=== PATIENT | female | born 1955 | race Two or more races ===

== ENCOUNTER 2019-01-26 10:32 | Inpatient (IN) | payer OTHER ==
[~2019-01-26] VITALS: Ht 152.4 cm; Wt 69.5 kg
[2019-01-26 11:15] LABS: BASOPHILS # (AUTO) 0.07 x10^3/uL (0-0.1); BASOPHILS % (AUTO) 1 % (0-1); EOSINOPHILS # (AUTO) 0.24 x10^3/uL (0-0.4); EOSINOPHILS % (AUTO) 2 % (1-7); LYMPHOCYTES # (AUTO) 3.94 x10^3/uL (1-3.4); LYMPHOCYTES % (AUTO) 40 % (22-44); MD NO; MEAN CORPUSCULAR HGB CONC 33.2 g/dL (32.4-35.8); MEAN CORPUSCULAR VOLUME 93.2 fL (80-100); MEAN PLATELET VOLUME 8.3 fL (7.4-10.4); MONOCYTES # (AUTO) 0.56 x10^3/uL (0.2-0.8); MONOCYTES % (AUTO) 6 % (2-9); NEUTROPHILS % (AUTO) 52 % (42-75); PLATELET COUNT 230 x10^3/uL (130-400); RED BLOOD COUNT 4.97 x10^6/uL (3.82-5.3)
[2019-01-26 11:26] LABS: PROTHROMBIN TIME 10.5 Seconds (9.6-11.5)
[2019-01-26] MEDS ORDERED: PROPOFOL 100 ML IV SCH (11:30)
[2019-01-26] MEDS ORDERED: PLEASE ENTER HEIGHT AND WEIGHT MC SCH (11:30)
[2019-01-26] MEDS ORDERED: SUCCINYLCHOLINE 20 MG/ML, 10ML IVPush ONE (11:30)
[2019-01-26] MEDS ORDERED: hydrALAzine 20 MG/ML, 1ML IV ONE (11:30)
[2019-01-26] MEDS ORDERED: ETOMIDATE 20 MG/10 ML IV ONE (11:30)
[2019-01-26] MEDS ORDERED: PLEASE ENTER ALLERGIES MC SCH (11:30)
[2019-01-26] MEDS ORDERED: OMNIPAQUE 350 MG/ML, 100ML BOTTLE ONE (11:37)
[2019-01-26 12:03] LABS: FIO2 100 %
[2019-01-26] MEDS ORDERED: hydrALAzine 20 MG/ML, 1ML ONE (12:29)
[2019-01-26] MEDS ORDERED: ONDANSETRON 4 MG TABLET PO PRN (12:30)
[2019-01-26 12:48] LABS: ALBUMIN 3.4 g/dL (3.4-5.0); ANION GAP 5 mmol/L (5-15); CALCIUM 8.5 mg/dL (8.5-10.1); CHLORIDE 106 mmol/L (98-107)
[2019-01-26] MEDS ORDERED: FENTANYL PF 250 MCG/5ML ONE (12:49)
[2019-01-26 12:53] LABS: CREATININE 0.97 mg/dL (0.55-1.02)
[2019-01-26 12:54] LABS: ALANINE AMINOTRANSFERASE 10 U/L (12-78); ALKALINE PHOSPHATASE 102 U/L (45-117); BILIRUBIN,TOTAL 0.5 mg/dL (0.2-1.0); TOTAL PROTEIN 7.9 g/dL (6.4-8.2)
[2019-01-26] MEDS ORDERED: BACITRACIN 50,000 UNIT ONE (13:15)
[2019-01-26] MEDS: ALBUTEROL/IPRATROPIUM 2.5MG/0.5MG, 3 ML INLINE SCH ×3 (14:00→23:00)
[2019-01-26] MEDS ORDERED: PHARMACY MAY ADJ FOR RENAL FX MC SCH (14:00)
[2019-01-26] MEDS ORDERED: PROPOFOL 10 MG/ML, 100ML IV ONE (15:46)
[2019-01-26] MEDS ORDERED: PROPOFOL 10 MG/ML, 20ML ONE (15:46)
[2019-01-26] MEDS ORDERED: ROCURONIUM 10MG/ML,5ML ONE (15:46)
[2019-01-26] MEDS ORDERED: SUCCINYLCHOLINE 20 MG/ML, 10ML ONE (15:46)
[2019-01-26] MEDS ORDERED: ETOMIDATE 40 MG/20 ML ONE (15:46)
[2019-01-26] MEDS ORDERED: SODIUM CHLORIDE 0.9% 1,000 ML IV SCH (17:00)
[2019-01-26] MEDS ORDERED: SODIUM CHLORIDE 0.9% 1,000ML IVBOLUS ONE (23:30)
[2019-01-27] MEDS: PROPOFOL 100 ML IV PRN ×3 (02:19→20:41)
[2019-01-27] MEDS: ALBUTEROL/IPRATROPIUM 2.5MG/0.5MG, 3 ML INLINE SCH ×6 (02:20→22:00)
[2019-01-27] MEDS ORDERED: SODIUM CHLORIDE 0.9%, 500ML IVBOLUS ONE (02:30)
[2019-01-27 04:00] VITALS: BP 132/70
[2019-01-27 06:49] LABS: BASOPHILS # (AUTO) 0.04 x10^3/uL (0-0.1); BASOPHILS % (AUTO) 0 % (0-1); EOSINOPHILS % (AUTO) 0 % (1-7); LYMPHOCYTES # (AUTO) 1.69 x10^3/uL (1-3.4); LYMPHOCYTES % (AUTO) 16 % (22-44); MD NO; MEAN CORPUSCULAR HGB CONC 33.1 g/dL (32.4-35.8); MEAN CORPUSCULAR VOLUME 90.8 fL (80-100); MEAN PLATELET VOLUME 8.3 fL (7.4-10.4); MONOCYTES # (AUTO) 0.66 x10^3/uL (0.2-0.8); MONOCYTES % (AUTO) 6 % (2-9); NEUTROPHILS # (AUTO) 8.53 x10^3/uL (1.8-6.8); NEUTROPHILS % (AUTO) 78 % (42-75); PLATELET COUNT 211 x10^3/uL (130-400); RED BLOOD COUNT 4.46 x10^6/uL (3.82-5.3); RED CELL DISTRIBUTION WIDTH 13.9 % (9.6-15.2)
[2019-01-27 07:00] LABS: ANION GAP 7 mmol/L (5-15); CHLORIDE 114 mmol/L (98-107); CREATININE 0.88 mg/dL (0.55-1.02)
[2019-01-27] MEDS: ENALAPRILAT 1.25 MG/ML, 2ML IV PRN (08:29)
[2019-01-27] MEDS ORDERED: LISINOPRIL 10 MG TABLET PO SCH (09:30)
[2019-01-27] MEDS: CEFTRIAXONE PMX 1GM/50ML 50 ML IV SCH (10:51)
[2019-01-27] MEDS: LABETALOL 5 MG/ML SYR. (IV ONLY) IV PRN (10:54)
[2019-01-27] MEDS: SODIUM CHLORIDE 0.9% 1,000 ML IV SCH (14:23)
[2019-01-27] MEDS: SODIUM CHLORIDE 0.45% 500 ML IV SCH ×2 (15:16→17:30)
[2019-01-27] MEDS ORDERED: POTASSIUM CHLORIDE 10% 40 MEQ/30 ML UDC PO SCH (15:30)
[2019-01-27] MEDS: ALBUMIN HUMAN 25% 100 ML IV SCH (18:23)
[2019-01-27] MEDS ORDERED: POTASSIUM CHLORIDE 40 MEQ in SODIUM CHLORIDE 0.9% 500 ML IV ONE (20:00)
[2019-01-27] MEDS: LISINOPRIL 10 MG TABLET NG SCH ×2 (20:17→20:42)
[2019-01-28] MEDS: ALBUMIN HUMAN 25% 100 ML IV SCH (00:28)
[2019-01-28] MEDS: ALBUTEROL/IPRATROPIUM 2.5MG/0.5MG, 3 ML INLINE SCH ×6 (02:00→23:00)
[2019-01-28] MEDS: SODIUM CHLORIDE 0.9% 1,000 ML IV SCH ×3 (02:37→21:47)
[2019-01-28] MEDS: PROPOFOL 100 ML IV PRN ×2 (02:37→06:45)
[2019-01-28 04:48] LABS: BASOPHILS % (AUTO) 0 % (0-1); EOSINOPHILS # (AUTO) 0.03 x10^3/uL (0-0.4); EOSINOPHILS % (AUTO) 0 % (1-7); LYMPHOCYTES # (AUTO) 1.85 x10^3/uL (1-3.4); LYMPHOCYTES % (AUTO) 16 % (22-44); MD NO; MEAN CORPUSCULAR HGB CONC 33.3 g/dL (32.4-35.8); MEAN PLATELET VOLUME 8.7 fL (7.4-10.4); MONOCYTES # (AUTO) 0.66 x10^3/uL (0.2-0.8); MONOCYTES % (AUTO) 6 % (2-9); NEUTROPHILS # (AUTO) 9.19 x10^3/uL (1.8-6.8); NEUTROPHILS % (AUTO) 78 % (42-75); PLATELET COUNT 170 x10^3/uL (130-400); RED BLOOD COUNT 3.99 x10^6/uL (3.82-5.3); RED CELL DISTRIBUTION WIDTH 14.3 % (9.6-15.2)
[2019-01-28 05:02] LABS: ANION GAP 4 mmol/L (5-15); CALCIUM 8.6 mg/dL (8.5-10.1); CHLORIDE 110 mmol/L (98-107); CREATININE 0.73 mg/dL (0.55-1.02)
[2019-01-28] MEDS: PANTOPRAZOLE 40 MG IV IVPush SCH (08:19)
[2019-01-28] MEDS ORDERED: POTASSIUM CHLORIDE 40 MEQ in SODIUM CHLORIDE 0.9% 500 ML IV ONE (09:00)
[2019-01-28] MEDS: LISINOPRIL 10 MG TABLET NG SCH ×2 (09:00→20:50)
[2019-01-28] MEDS: ENALAPRILAT 1.25 MG/ML, 2ML IV PRN (10:03)
[2019-01-28] MEDS: FENTANYL PF 100 MCG/2ML IVPush PRN ×3 (11:34→19:54)
[2019-01-28] MEDS: CEFTRIAXONE PMX 1GM/50ML 50 ML IV SCH (14:51)
[2019-01-29] MEDS: SODIUM CHLORIDE 0.9% 1,000 ML IV SCH ×2 (02:30→11:52)
[2019-01-29] MEDS: ALBUTEROL/IPRATROPIUM 2.5MG/0.5MG, 3 ML INLINE SCH ×6 (02:46→22:35)
[2019-01-29] MEDS: ENALAPRILAT 1.25 MG/ML, 2ML IV PRN (02:51)
[2019-01-29 04:25] LABS: BASOPHILS # (AUTO) 0.03 x10^3/uL (0-0.1); BASOPHILS % (AUTO) 0 % (0-1); EOSINOPHILS # (AUTO) 0.26 x10^3/uL (0-0.4); EOSINOPHILS % (AUTO) 2 % (1-7); LYMPHOCYTES # (AUTO) 2.03 x10^3/uL (1-3.4); LYMPHOCYTES % (AUTO) 17 % (22-44); MD NO; MEAN CORPUSCULAR HEMOGLOBIN 30.5 pg (27.0-34.8); MEAN CORPUSCULAR HGB CONC 32.5 g/dL (32.4-35.8); MEAN CORPUSCULAR VOLUME 93.8 fL (80-100); MEAN PLATELET VOLUME 8.6 fL (7.4-10.4); MONOCYTES # (AUTO) 0.81 x10^3/uL (0.2-0.8); MONOCYTES % (AUTO) 7 % (2-9); NEUTROPHILS # (AUTO) 8.53 x10^3/uL (1.8-6.8); NEUTROPHILS % (AUTO) 73 % (42-75); PLATELET COUNT 188 x10^3/uL (130-400); RED BLOOD COUNT 4.17 x10^6/uL (3.82-5.3); RED CELL DISTRIBUTION WIDTH 14.2 % (9.6-15.2)
[2019-01-29 04:37] LABS: ANION GAP 5 mmol/L (5-15); CALCIUM 8.2 mg/dL (8.5-10.1); CHLORIDE 115 mmol/L (98-107)
[2019-01-29 04:40] LABS: CREATININE 0.59 mg/dL (0.55-1.02)
[2019-01-29] MEDS: PANTOPRAZOLE 40 MG IV IVPush SCH (05:33)
[2019-01-29] MEDS ORDERED: POTASSIUM CHLORIDE 10% 40 MEQ/30 ML UDC PO ONE (07:00)
[2019-01-29] MEDS: GLYCOPYRROLATE 1 MG TABLET PO SCH ×2 (09:48→22:17)
[2019-01-29] MEDS: LISINOPRIL 10 MG TABLET NG SCH ×2 (09:48→22:06)
[2019-01-29] MEDS: CEFTRIAXONE PMX 1GM/50ML 50 ML IV SCH (13:04)
[2019-01-29] MEDS: LEVETIRACETAM 500 MG in SODIUM CHLORIDE 0.9% 100 ML IV SCH (15:37)
[2019-01-29] MEDS: FENTANYL PF 100 MCG/2ML IVPush PRN (22:19)
[2019-01-30] MEDS: SODIUM CHLORIDE 0.9% 1,000 ML IV SCH ×2 (02:20→16:02)
[2019-01-30] MEDS: ALBUTEROL/IPRATROPIUM 2.5MG/0.5MG, 3 ML INLINE SCH ×3 (03:00→10:57)
[2019-01-30] MEDS: LEVETIRACETAM 500 MG in SODIUM CHLORIDE 0.9% 100 ML IV SCH ×2 (04:27→16:02)
[2019-01-30 05:30] LABS: BASOPHILS # (AUTO) 0.02 x10^3/uL (0-0.1); BASOPHILS % (AUTO) 0 % (0-1); EOSINOPHILS % (AUTO) 4 % (1-7); LYMPHOCYTES # (AUTO) 2.03 x10^3/uL (1-3.4); LYMPHOCYTES % (AUTO) 18 % (22-44); MD NO; MEAN CORPUSCULAR HEMOGLOBIN 30.9 pg (27.0-34.8); MEAN CORPUSCULAR HGB CONC 33.2 g/dL (32.4-35.8); MEAN CORPUSCULAR VOLUME 93.1 fL (80-100); MEAN PLATELET VOLUME 8.7 fL (7.4-10.4); MONOCYTES # (AUTO) 0.86 x10^3/uL (0.2-0.8); MONOCYTES % (AUTO) 8 % (2-9); NEUTROPHILS # (AUTO) 8.12 x10^3/uL (1.8-6.8); NEUTROPHILS % (AUTO) 71 % (42-75); PLATELET COUNT 202 x10^3/uL (130-400); RED BLOOD COUNT 4.36 x10^6/uL (3.82-5.3); RED CELL DISTRIBUTION WIDTH 13.9 % (9.6-15.2)
[2019-01-30 05:32] LABS: ANION GAP 5 mmol/L (5-15); CALCIUM 8.8 mg/dL (8.5-10.1); CHLORIDE 112 mmol/L (98-107)
[2019-01-30] MEDS: PANTOPRAZOLE 40 MG IV IVPush SCH (06:23)
[2019-01-30] MEDS: POTASSIUM CHLORIDE 20 MEQ TAB.ER.PRT PO SCH ×2 (08:30→17:33)
[2019-01-30] MEDS: GLYCOPYRROLATE 1 MG TABLET PO SCH ×2 (08:30→20:19)
[2019-01-30] MEDS: LISINOPRIL 10 MG TABLET NG SCH (08:30)
[2019-01-30] MEDS: DOCUSATE 50 MG/5 ML, 10ML UDC PO SCH (08:48)
[2019-01-30] MEDS: LACTULOSE 20 GM/30 ML UDC PO PRN (08:48)
[2019-01-30] MEDS ORDERED: BISACODYL 10 MG SUPP PR PRN (09:00)
[2019-01-30] MEDS: ENALAPRILAT 1.25 MG/ML, 2ML IV PRN ×2 (10:52→17:35)
[2019-01-30] MEDS ORDERED: RACEPINEPHRINE INH 2.25%, 0.5ML ONE ×2 (11:18→11:20)
[2019-01-30] MEDS: RACEPINEPHRINE INH 2.25%, 0.5ML NPPB PRN ×2 (11:23→13:46)
[2019-01-30] MEDS: LABETALOL 5 MG/ML SYR. (IV ONLY) IV PRN ×4 (11:25→18:17)
[2019-01-30] MEDS ORDERED: DEXAMETHASONE 4 MG/ML, 1ML ONE (11:32)
[2019-01-30] MEDS ORDERED: DEXAMETHASONE 4 MG/ML, 1ML IVPush ONE (12:00)
[2019-01-30] MEDS: CEFTRIAXONE PMX 1GM/50ML 50 ML IV SCH (14:24)
[2019-01-30] MEDS ORDERED: ALBUTEROL/IPRATROPIUM 2.5MG/0.5MG, 3 ML ONE (15:12)
[2019-01-30] MEDS: CARVEDILOL 6.25 MG TABLET PO SCH (17:33)
[2019-01-30] MEDS: DEXAMETHASONE 4 MG/ML, 1ML IVPush SCH (17:33)
[2019-01-30] MEDS: SENNOSIDES 8.8 MG/5 ML ORAL SOL NG SCH (20:07)
[2019-01-30] MEDS: LISINOPRIL 20 MG TABLET NG SCH (20:19)
[2019-01-31] MEDS: DEXAMETHASONE 4 MG/ML, 1ML IVPush SCH ×4 (01:06→18:16)
[2019-01-31] MEDS: LEVETIRACETAM 500 MG in SODIUM CHLORIDE 0.9% 100 ML IV SCH ×2 (04:25→15:40)
[2019-01-31 04:51] LABS: BASOPHILS # (AUTO) 0.01 x10^3/uL (0-0.1); BASOPHILS % (AUTO) 0 % (0-1); EOSINOPHILS % (AUTO) 0 % (1-7); LYMPHOCYTES # (AUTO) 0.87 x10^3/uL (1-3.4); LYMPHOCYTES % (AUTO) 12 % (22-44); MD NO; MEAN CORPUSCULAR HEMOGLOBIN 30.7 pg (27.0-34.8); MEAN CORPUSCULAR HGB CONC 32.7 g/dL (32.4-35.8); MEAN CORPUSCULAR VOLUME 94.1 fL (80-100); MEAN PLATELET VOLUME 8.6 fL (7.4-10.4); MONOCYTES # (AUTO) 0.06 x10^3/uL (0.2-0.8); MONOCYTES % (AUTO) 1 % (2-9); NEUTROPHILS # (AUTO) 6.24 x10^3/uL (1.8-6.8); NEUTROPHILS % (AUTO) 87 % (42-75); PLATELET COUNT 261 x10^3/uL (130-400); RED BLOOD COUNT 4.52 x10^6/uL (3.82-5.3); RED CELL DISTRIBUTION WIDTH 14.2 % (9.6-15.2)
[2019-01-31 04:59] LABS: ANION GAP 4 mmol/L (5-15); CALCIUM 9.2 mg/dL (8.5-10.1); CHLORIDE 112 mmol/L (98-107); CREATININE 0.74 mg/dL (0.55-1.02)
[2019-01-31] MEDS: SODIUM CHLORIDE 0.9% 1,000 ML IV SCH ×2 (05:35→18:16)
[2019-01-31] MEDS: CARVEDILOL 6.25 MG TABLET PO SCH ×2 (05:43→18:16)
[2019-01-31] MEDS: PANTOPRAZOLE 40 MG IV IVPush SCH (05:43)
[2019-01-31] MEDS: GLYCOPYRROLATE 1 MG TABLET PO SCH ×2 (08:15→21:28)
[2019-01-31] MEDS: LISINOPRIL 20 MG TABLET NG SCH ×2 (08:15→21:28)
[2019-01-31] MEDS: DOCUSATE 50 MG/5 ML, 10ML UDC PO SCH (08:15)
[2019-01-31] MEDS: ENALAPRILAT 1.25 MG/ML, 2ML IV PRN (10:11)
[2019-01-31] MEDS: hydrALAzine 20 MG/ML, 1ML IV PRN (12:33)
[2019-01-31] MEDS: CEFTRIAXONE PMX 1GM/50ML 50 ML IV SCH (13:47)
[2019-01-31] MEDS: SENNOSIDES 8.8 MG/5 ML ORAL SOL NG SCH (21:28)
[2019-02-01] MEDS: DEXAMETHASONE 4 MG/ML, 1ML IVPush SCH (00:06)
[2019-02-01] MEDS: hydrALAzine 20 MG/ML, 1ML IV PRN ×3 (03:04→23:17)
[2019-02-01] MEDS: LEVETIRACETAM 500 MG in SODIUM CHLORIDE 0.9% 100 ML IV SCH ×2 (04:10→15:45)
[2019-02-01 04:18] LABS: BASOPHILS # (AUTO) 0.01 x10^3/uL (0-0.1); BASOPHILS % (AUTO) 0 % (0-1); EOSINOPHILS # (AUTO) 0.03 x10^3/uL (0-0.4); EOSINOPHILS % (AUTO) 0 % (1-7); LYMPHOCYTES # (AUTO) 0.82 x10^3/uL (1-3.4); LYMPHOCYTES % (AUTO) 8 % (22-44); MD NO; MEAN CORPUSCULAR HGB CONC 32.7 g/dL (32.4-35.8); MEAN CORPUSCULAR VOLUME 94.8 fL (80-100); MEAN PLATELET VOLUME 8.6 fL (7.4-10.4); MONOCYTES # (AUTO) 0.23 x10^3/uL (0.2-0.8); MONOCYTES % (AUTO) 2 % (2-9); NEUTROPHILS # (AUTO) 9.33 x10^3/uL (1.8-6.8); NEUTROPHILS % (AUTO) 90 % (42-75); PLATELET COUNT 276 x10^3/uL (130-400); RED CELL DISTRIBUTION WIDTH 14.1 % (9.6-15.2)
[2019-02-01 04:30] LABS: ANION GAP 1 mmol/L (5-15); CHLORIDE 110 mmol/L (98-107); CREATININE 0.79 mg/dL (0.55-1.02)
[2019-02-01] MEDS: CARVEDILOL 6.25 MG TABLET PO SCH ×2 (05:57→17:21)
[2019-02-01] MEDS: PANTOPRAZOLE 40 MG IV IVPush SCH (05:57)
[2019-02-01] MEDS: GLYCOPYRROLATE 1 MG TABLET PO SCH ×2 (08:24→20:41)
[2019-02-01] MEDS: SODIUM CHLORIDE 0.9% 1,000 ML IV SCH (08:24)
[2019-02-01] MEDS: LISINOPRIL 20 MG TABLET NG SCH ×2 (08:24→20:41)
[2019-02-01] MEDS: DOCUSATE 50 MG/5 ML, 10ML UDC PO SCH (08:24)
[2019-02-01] MEDS: CEFTRIAXONE PMX 1GM/50ML 50 ML IV SCH (14:16)
[2019-02-02] MEDS: hydrALAzine 20 MG/ML, 1ML IV PRN (01:52)
[2019-02-02] MEDS: LEVETIRACETAM 500 MG in SODIUM CHLORIDE 0.9% 100 ML IV SCH ×2 (04:20→16:07)
[2019-02-02 04:35] LABS: BASOPHILS # (AUTO) 0.04 x10^3/uL (0-0.1); BASOPHILS % (AUTO) 0 % (0-1); EOSINOPHILS # (AUTO) 0.01 x10^3/uL (0-0.4); EOSINOPHILS % (AUTO) 0 % (1-7); LYMPHOCYTES # (AUTO) 3.05 x10^3/uL (1-3.4); LYMPHOCYTES % (AUTO) 24 % (22-44); MD NO; MEAN CORPUSCULAR HGB CONC 32.4 g/dL (32.4-35.8); MEAN CORPUSCULAR VOLUME 92.4 fL (80-100); MEAN PLATELET VOLUME 8.5 fL (7.4-10.4); MONOCYTES # (AUTO) 1.11 x10^3/uL (0.2-0.8); MONOCYTES % (AUTO) 9 % (2-9); NEUTROPHILS # (AUTO) 8.58 x10^3/uL (1.8-6.8); NEUTROPHILS % (AUTO) 67 % (42-75); PLATELET COUNT 319 x10^3/uL (130-400); RED BLOOD COUNT 4.97 x10^6/uL (3.82-5.3); RED CELL DISTRIBUTION WIDTH 14.1 % (9.6-15.2)
[2019-02-02 04:44] LABS: ANION GAP 3 mmol/L (5-15); CALCIUM 9.1 mg/dL (8.5-10.1); CHLORIDE 110 mmol/L (98-107); CREATININE 0.86 mg/dL (0.55-1.02)
[2019-02-02] MEDS: PANTOPRAZOLE 40 MG IV IVPush SCH (06:06)
[2019-02-02] MEDS: CARVEDILOL 6.25 MG TABLET PO SCH ×2 (06:07→17:45)
[2019-02-02] MEDS: DOCUSATE 50 MG/5 ML, 10ML UDC PO SCH (08:39)
[2019-02-02] MEDS: LISINOPRIL 20 MG TABLET NG SCH ×2 (08:39→21:15)
[2019-02-02] MEDS: GLYCOPYRROLATE 1 MG TABLET PO SCH ×2 (08:39→21:15)
[2019-02-02] MEDS: DOXAZOSIN 2MG TABLET PO SCH (08:40)
[2019-02-02] MEDS: CEFTRIAXONE PMX 1GM/50ML 50 ML IV SCH (14:08)
[2019-02-03] MEDS: hydrALAzine 20 MG/ML, 1ML IV PRN (01:05)
[2019-02-03] MEDS: LEVETIRACETAM 500 MG in SODIUM CHLORIDE 0.9% 100 ML IV SCH ×2 (04:14→16:29)
[2019-02-03 04:34] LABS: BASOPHILS % (AUTO) 0 % (0-1); EOSINOPHILS # (AUTO) 0.24 x10^3/uL (0-0.4); EOSINOPHILS % (AUTO) 2 % (1-7); LYMPHOCYTES # (AUTO) 2.07 x10^3/uL (1-3.4); LYMPHOCYTES % (AUTO) 20 % (22-44); MD NO; MEAN CORPUSCULAR HEMOGLOBIN 30.3 pg (27.0-34.8); MEAN CORPUSCULAR HGB CONC 32.2 g/dL (32.4-35.8); MEAN CORPUSCULAR VOLUME 94.1 fL (80-100); MEAN PLATELET VOLUME 8.3 fL (7.4-10.4); MONOCYTES # (AUTO) 0.26 x10^3/uL (0.2-0.8); MONOCYTES % (AUTO) 3 % (2-9); NEUTROPHILS % (AUTO) 75 % (42-75); PLATELET COUNT 303 x10^3/uL (130-400); RED BLOOD COUNT 4.64 x10^6/uL (3.82-5.3)
[2019-02-03 04:55] LABS: ANION GAP 2 mmol/L (5-15); CHLORIDE 109 mmol/L (98-107)
[2019-02-03 04:57] LABS: CREATININE 0.79 mg/dL (0.55-1.02)
[2019-02-03] MEDS: CARVEDILOL 6.25 MG TABLET PO SCH ×2 (05:49→17:56)
[2019-02-03] MEDS: PANTOPRAZOLE 40 MG IV IVPush SCH (05:49)
[2019-02-03] MEDS: LISINOPRIL 20 MG TABLET NG SCH ×2 (08:57→20:35)
[2019-02-03] MEDS: DOXAZOSIN 2MG TABLET PO SCH (08:57)
[2019-02-03] MEDS: DOCUSATE 50 MG/5 ML, 10ML UDC PO SCH (08:57)
[2019-02-03] MEDS: GLYCOPYRROLATE 1 MG TABLET PO SCH ×2 (08:57→20:35)
[2019-02-03] MEDS: CEFTRIAXONE PMX 1GM/50ML 50 ML IV SCH (14:26)
[2019-02-04] MEDS: LEVETIRACETAM 500 MG in SODIUM CHLORIDE 0.9% 100 ML IV SCH ×2 (04:20→16:04)
[2019-02-04 04:21] LABS: BASOPHILS # (AUTO) 0.05 x10^3/uL (0-0.1); BASOPHILS % (AUTO) 1 % (0-1); EOSINOPHILS % (AUTO) 5 % (1-7); LYMPHOCYTES # (AUTO) 2.16 x10^3/uL (1-3.4); LYMPHOCYTES % (AUTO) 18 % (22-44); MD NO; MEAN CORPUSCULAR HEMOGLOBIN 30.6 pg (27.0-34.8); MEAN CORPUSCULAR HGB CONC 32.2 g/dL (32.4-35.8); MEAN CORPUSCULAR VOLUME 94.8 fL (80-100); MEAN PLATELET VOLUME 8.3 fL (7.4-10.4); MONOCYTES # (AUTO) 0.48 x10^3/uL (0.2-0.8); MONOCYTES % (AUTO) 4 % (2-9); NEUTROPHILS # (AUTO) 8.62 x10^3/uL (1.8-6.8); NEUTROPHILS % (AUTO) 72 % (42-75); PLATELET COUNT 279 x10^3/uL (130-400); RED BLOOD COUNT 4.53 x10^6/uL (3.82-5.3); RED CELL DISTRIBUTION WIDTH 13.9 % (9.6-15.2)
[2019-02-04 04:29] LABS: ANION GAP 1 mmol/L (5-15); CALCIUM 8.8 mg/dL (8.5-10.1); CHLORIDE 107 mmol/L (98-107); CREATININE 0.69 mg/dL (0.55-1.02)
[2019-02-04] MEDS: CARVEDILOL 6.25 MG TABLET PO SCH ×2 (06:08→18:41)
[2019-02-04] MEDS: PANTOPRAZOLE 40 MG IV IVPush SCH (06:08)
[2019-02-04] MEDS: GLYCOPYRROLATE 1 MG TABLET PO SCH ×2 (09:49→20:53)
[2019-02-04] MEDS: DOXAZOSIN 2MG TABLET PO SCH (09:51)
[2019-02-04] MEDS: LISINOPRIL 20 MG TABLET NG SCH ×2 (09:51→20:53)
[2019-02-04] MEDS: DOCUSATE 50 MG/5 ML, 10ML UDC PO SCH (09:52)
[2019-02-04] MEDS: CHOLESTYRAMINE LIGHT 4GM PACKET PO SCH ×2 (09:52→20:53)
[2019-02-05] MEDS: LEVETIRACETAM 500 MG in SODIUM CHLORIDE 0.9% 100 ML IV SCH ×2 (04:14→16:37)
[2019-02-05 04:27] LABS: BASOPHILS # (AUTO) 0.04 x10^3/uL (0-0.1); BASOPHILS % (AUTO) 0 % (0-1); EOSINOPHILS # (AUTO) 0.74 x10^3/uL (0-0.4); EOSINOPHILS % (AUTO) 6 % (1-7); LYMPHOCYTES # (AUTO) 2.07 x10^3/uL (1-3.4); LYMPHOCYTES % (AUTO) 16 % (22-44); MD NO; MEAN CORPUSCULAR HEMOGLOBIN 30.1 pg (27.0-34.8); MEAN CORPUSCULAR HGB CONC 32.4 g/dL (32.4-35.8); MEAN CORPUSCULAR VOLUME 92.8 fL (80-100); MEAN PLATELET VOLUME 8.3 fL (7.4-10.4); MONOCYTES # (AUTO) 0.81 x10^3/uL (0.2-0.8); MONOCYTES % (AUTO) 6 % (2-9); NEUTROPHILS # (AUTO) 9.58 x10^3/uL (1.8-6.8); NEUTROPHILS % (AUTO) 72 % (42-75); PLATELET COUNT 271 x10^3/uL (130-400); RED BLOOD COUNT 4.38 x10^6/uL (3.82-5.3); RED CELL DISTRIBUTION WIDTH 13.5 % (9.6-15.2)
[2019-02-05 04:35] LABS: ANION GAP 2 mmol/L (5-15); CALCIUM 8.8 mg/dL (8.5-10.1); CHLORIDE 104 mmol/L (98-107)
[2019-02-05 04:36] LABS: CREATININE 0.58 mg/dL (0.55-1.02)
[2019-02-05] MEDS: PANTOPRAZOLE 40 MG IV IVPush SCH (06:32)
[2019-02-05] MEDS: CARVEDILOL 6.25 MG TABLET PO SCH ×2 (06:33→17:22)
[2019-02-05] MEDS: DOXAZOSIN 2MG TABLET PO SCH (08:11)
[2019-02-05] MEDS: LISINOPRIL 20 MG TABLET NG SCH ×2 (08:11→20:29)
[2019-02-05] MEDS: CHOLESTYRAMINE LIGHT 4GM PACKET PO SCH ×2 (08:11→20:29)
[2019-02-05] MEDS ORDERED: MIDAZOLAM 1 MG/ML, 2ML ONE (11:49)
[2019-02-05] MEDS ORDERED: MIDAZOLAM 1 MG/ML, 2ML IVPush ONE (12:00)
[2019-02-05] MEDS: NYSTATIN 500,000 UNITS/5 ML UDC PO SCH ×3 (12:59→20:29)
[2019-02-06] MEDS: LEVETIRACETAM 500 MG in SODIUM CHLORIDE 0.9% 100 ML IV SCH (03:55)
[2019-02-06 04:26] LABS: BASOPHILS # (AUTO) 0.02 x10^3/uL (0-0.1); BASOPHILS % (AUTO) 0 % (0-1); EOSINOPHILS # (AUTO) 0.61 x10^3/uL (0-0.4); EOSINOPHILS % (AUTO) 4 % (1-7); LYMPHOCYTES % (AUTO) 17 % (22-44); MD NO; MEAN CORPUSCULAR HEMOGLOBIN 30.6 pg (27.0-34.8); MEAN CORPUSCULAR HGB CONC 32.4 g/dL (32.4-35.8); MEAN CORPUSCULAR VOLUME 94.3 fL (80-100); MEAN PLATELET VOLUME 8.4 fL (7.4-10.4); MONOCYTES # (AUTO) 1.13 x10^3/uL (0.2-0.8); MONOCYTES % (AUTO) 8 % (2-9); NEUTROPHILS # (AUTO) 9.72 x10^3/uL (1.8-6.8); NEUTROPHILS % (AUTO) 71 % (42-75); PLATELET COUNT 272 x10^3/uL (130-400); RED BLOOD COUNT 4.17 x10^6/uL (3.82-5.3); RED CELL DISTRIBUTION WIDTH 13.6 % (9.6-15.2)
[2019-02-06 04:36] LABS: ANION GAP 4 mmol/L (5-15); CALCIUM 8.7 mg/dL (8.5-10.1); CHLORIDE 100 mmol/L (98-107); CREATININE 0.62 mg/dL (0.55-1.02)
[2019-02-06] MEDS: CARVEDILOL 6.25 MG TABLET PO SCH ×2 (06:25→16:22)
[2019-02-06] MEDS: PANTOPRAZOLE 40 MG IV IVPush SCH (06:25)
[2019-02-06] MEDS: NYSTATIN 500,000 UNITS/5 ML UDC PO SCH ×4 (06:25→20:18)
[2019-02-06] MEDS: SODIUM CHLORIDE 1 GM TABLET NG SCH ×3 (08:32→20:18)
[2019-02-06] MEDS: CHOLESTYRAMINE LIGHT 4GM PACKET PO SCH ×2 (08:32→21:06)
[2019-02-06] MEDS: DOXAZOSIN 2MG TABLET PO SCH (08:32)
[2019-02-06] MEDS: LISINOPRIL 20 MG TABLET NG SCH ×2 (08:32→20:18)
[2019-02-07] MEDS: hydrALAzine 20 MG/ML, 1ML IV PRN (03:37)
[2019-02-07 04:36] LABS: BASOPHILS # (AUTO) 0.02 x10^3/uL (0-0.1); BASOPHILS % (AUTO) 0 % (0-1); EOSINOPHILS # (AUTO) 0.59 x10^3/uL (0-0.4); EOSINOPHILS % (AUTO) 5 % (1-7); LYMPHOCYTES # (AUTO) 2.17 x10^3/uL (1-3.4); LYMPHOCYTES % (AUTO) 17 % (22-44); MD NO; MEAN CORPUSCULAR HEMOGLOBIN 30.8 pg (27.0-34.8); MEAN CORPUSCULAR VOLUME 93.6 fL (80-100); MEAN PLATELET VOLUME 8.6 fL (7.4-10.4); MONOCYTES % (AUTO) 9 % (2-9); NEUTROPHILS # (AUTO) 8.93 x10^3/uL (1.8-6.8); NEUTROPHILS % (AUTO) 69 % (42-75); PLATELET COUNT 289 x10^3/uL (130-400); RED BLOOD COUNT 4.22 x10^6/uL (3.82-5.3); RED CELL DISTRIBUTION WIDTH 13.6 % (9.6-15.2)
[2019-02-07 04:46] LABS: ANION GAP 4 mmol/L (5-15); CALCIUM 8.9 mg/dL (8.5-10.1); CHLORIDE 102 mmol/L (98-107); CREATININE 0.59 mg/dL (0.55-1.02)
[2019-02-07] MEDS: CARVEDILOL 6.25 MG TABLET PO SCH ×2 (05:49→16:52)
[2019-02-07] MEDS: NYSTATIN 500,000 UNITS/5 ML UDC PO SCH ×4 (05:49→19:58)
[2019-02-07] MEDS: PANTOPRAZOLE 40 MG IV IVPush SCH (05:50)
[2019-02-07] MEDS: LISINOPRIL 20 MG TABLET NG SCH ×2 (09:26→19:58)
[2019-02-07] MEDS: DOXAZOSIN 2MG TABLET PO SCH (09:26)
[2019-02-07] MEDS: SODIUM CHLORIDE 1 GM TABLET NG SCH ×3 (09:26→19:57)
[2019-02-07] MEDS: ACETAMINOPHEN 650 MG/20.3 ML UDC PO/NG PRN (19:57)
[2019-02-08 04:27] LABS: BASOPHILS # (AUTO) 0.05 x10^3/uL (0-0.1); BASOPHILS % (AUTO) 1 % (0-1); EOSINOPHILS # (AUTO) 0.51 x10^3/uL (0-0.4); EOSINOPHILS % (AUTO) 5 % (1-7); LYMPHOCYTES # (AUTO) 2.06 x10^3/uL (1-3.4); LYMPHOCYTES % (AUTO) 19 % (22-44); MD NO; MEAN CORPUSCULAR HEMOGLOBIN 30.7 pg (27.0-34.8); MEAN CORPUSCULAR HGB CONC 32.7 g/dL (32.4-35.8); MEAN CORPUSCULAR VOLUME 93.9 fL (80-100); MEAN PLATELET VOLUME 8.7 fL (7.4-10.4); MONOCYTES # (AUTO) 1.06 x10^3/uL (0.2-0.8); MONOCYTES % (AUTO) 10 % (2-9); NEUTROPHILS # (AUTO) 7.36 x10^3/uL (1.8-6.8); NEUTROPHILS % (AUTO) 67 % (42-75); PLATELET COUNT 315 x10^3/uL (130-400); RED BLOOD COUNT 4.26 x10^6/uL (3.82-5.3); RED CELL DISTRIBUTION WIDTH 13.9 % (9.6-15.2)
[2019-02-08 04:36] LABS: ANION GAP 1 mmol/L (5-15); CALCIUM 9.4 mg/dL (8.5-10.1); CHLORIDE 106 mmol/L (98-107); CREATININE 0.63 mg/dL (0.55-1.02)
[2019-02-08] MEDS: CARVEDILOL 6.25 MG TABLET PO SCH ×2 (06:07→17:35)
[2019-02-08] MEDS: NYSTATIN 500,000 UNITS/5 ML UDC PO SCH ×4 (06:07→19:50)
[2019-02-08] MEDS: PANTOPRAZOLE 40 MG IV IVPush SCH (06:07)
[2019-02-08] MEDS: SODIUM CHLORIDE 1 GM TABLET NG SCH ×3 (11:21→19:50)
[2019-02-08] MEDS: LISINOPRIL 20 MG TABLET NG SCH ×2 (11:22→19:50)
[2019-02-08] MEDS: DOXAZOSIN 2MG TABLET PO SCH (11:22)
[2019-02-08] MEDS: hydrALAzine 20 MG/ML, 1ML IV PRN (17:35)
[2019-02-08] MEDS: ACETAMINOPHEN 650 MG/20.3 ML UDC PO/NG PRN (19:50)
[2019-02-09 04:36] LABS: BASOPHILS # (AUTO) 0.05 x10^3/uL (0-0.1); BASOPHILS % (AUTO) 0 % (0-1); EOSINOPHILS # (AUTO) 0.18 x10^3/uL (0-0.4); EOSINOPHILS % (AUTO) 1 % (1-7); LYMPHOCYTES # (AUTO) 2.13 x10^3/uL (1-3.4); LYMPHOCYTES % (AUTO) 16 % (22-44); MD NO; MEAN CORPUSCULAR HEMOGLOBIN 30.9 pg (27.0-34.8); MEAN CORPUSCULAR HGB CONC 32.9 g/dL (32.4-35.8); MEAN CORPUSCULAR VOLUME 93.8 fL (80-100); MEAN PLATELET VOLUME 8.9 fL (7.4-10.4); MONOCYTES # (AUTO) 1.22 x10^3/uL (0.2-0.8); MONOCYTES % (AUTO) 9 % (2-9); NEUTROPHILS # (AUTO) 9.44 x10^3/uL (1.8-6.8); NEUTROPHILS % (AUTO) 73 % (42-75); PLATELET COUNT 304 x10^3/uL (130-400); RED BLOOD COUNT 4.21 x10^6/uL (3.82-5.3); RED CELL DISTRIBUTION WIDTH 14.1 % (9.6-15.2)
[2019-02-09 04:49] LABS: ANION GAP 3 mmol/L (5-15); CALCIUM 9.3 mg/dL (8.5-10.1); CHLORIDE 106 mmol/L (98-107)
[2019-02-09] MEDS: PANTOPRAZOLE 40 MG IV IVPush SCH (05:50)
[2019-02-09] MEDS: CARVEDILOL 6.25 MG TABLET PO SCH ×4 (05:50→20:19)
[2019-02-09] MEDS: NYSTATIN 500,000 UNITS/5 ML UDC PO SCH ×4 (05:50→20:19)
[2019-02-09] MEDS: LISINOPRIL 20 MG TABLET NG SCH ×2 (09:28→20:18)
[2019-02-09] MEDS: FAMOTIDINE 20 MG TABLET PO SCH ×2 (09:28→20:19)
[2019-02-09] MEDS: SODIUM CHLORIDE 1 GM TABLET NG SCH ×3 (09:28→20:18)
[2019-02-09] MEDS: DOXAZOSIN 2MG TABLET PO SCH (09:28)
[2019-02-09] MEDS: ENOXAPARIN 40 MG/0.4 ML SQ SCH (09:28)
[2019-02-09 19:20] VITALS: BP 135/80
[2019-02-10 02:00] VITALS: BP 126/75
[2019-02-10 04:31] LABS: BASOPHILS # (AUTO) 0.08 x10^3/uL (0-0.1); BASOPHILS % (AUTO) 1 % (0-1); EOSINOPHILS # (AUTO) 0.41 x10^3/uL (0-0.4); EOSINOPHILS % (AUTO) 4 % (1-7); LYMPHOCYTES # (AUTO) 1.98 x10^3/uL (1-3.4); LYMPHOCYTES % (AUTO) 17 % (22-44); MD NO; MEAN CORPUSCULAR HEMOGLOBIN 30.8 pg (27.0-34.8); MEAN CORPUSCULAR HGB CONC 33.8 g/dL (32.4-35.8); MEAN CORPUSCULAR VOLUME 91.3 fL (80-100); MEAN PLATELET VOLUME 8.6 fL (7.4-10.4); MONOCYTES # (AUTO) 1.06 x10^3/uL (0.2-0.8); MONOCYTES % (AUTO) 9 % (2-9); NEUTROPHILS # (AUTO) 7.97 x10^3/uL (1.8-6.8); NEUTROPHILS % (AUTO) 69 % (42-75); PLATELET COUNT 319 x10^3/uL (130-400); RED BLOOD COUNT 3.93 x10^6/uL (3.82-5.3); RED CELL DISTRIBUTION WIDTH 13.9 % (9.6-15.2)
[2019-02-10 04:35] LABS: ANION GAP 4 mmol/L (5-15); CALCIUM 9.3 mg/dL (8.5-10.1); CHLORIDE 108 mmol/L (98-107); CREATININE 0.63 mg/dL (0.55-1.02)
[2019-02-10] MEDS: NYSTATIN 500,000 UNITS/5 ML UDC PO SCH ×4 (06:37→20:59)
[2019-02-10] MEDS: hydrALAzine 20 MG/ML, 1ML IV PRN (08:28)
[2019-02-10] MEDS: DOXAZOSIN 2MG TABLET PO SCH (08:32)
[2019-02-10] MEDS: FAMOTIDINE 20 MG TABLET PO SCH ×2 (08:32→20:59)
[2019-02-10] MEDS: ENOXAPARIN 40 MG/0.4 ML SQ SCH (08:32)
[2019-02-10 08:33] VITALS: BP 183/88
[2019-02-10] MEDS: SODIUM CHLORIDE 1 GM TABLET NG SCH ×4 (08:33→21:02)
[2019-02-10] MEDS: CARVEDILOL 6.25 MG TABLET PO SCH ×3 (08:33→20:59)
[2019-02-10] MEDS: LISINOPRIL 20 MG TABLET NG SCH ×2 (08:33→20:59)
[2019-02-10] MEDS: AMLODIPINE 5 MG TABLET PO SCH (09:49)
[2019-02-10 14:00] VITALS: BP 147/86
[2019-02-10 16:36] VITALS: BP 163/76
[2019-02-10 17:42] VITALS: BP 155/82
[2019-02-10 19:29] VITALS: BP 143/70
[2019-02-11 00:32] VITALS: BP 164/79
[2019-02-11 05:00] LABS: BASOPHILS # (AUTO) 0.08 x10^3/uL (0-0.1); BASOPHILS % (AUTO) 1 % (0-1); EOSINOPHILS # (AUTO) 0.27 x10^3/uL (0-0.4); EOSINOPHILS % (AUTO) 2 % (1-7); LYMPHOCYTES # (AUTO) 1.86 x10^3/uL (1-3.4); LYMPHOCYTES % (AUTO) 14 % (22-44); MD NO; MEAN CORPUSCULAR HEMOGLOBIN 30.4 pg (27.0-34.8); MEAN CORPUSCULAR HGB CONC 32.9 g/dL (32.4-35.8); MEAN CORPUSCULAR VOLUME 92.3 fL (80-100); MEAN PLATELET VOLUME 8.6 fL (7.4-10.4); MONOCYTES # (AUTO) 1.03 x10^3/uL (0.2-0.8); MONOCYTES % (AUTO) 8 % (2-9); NEUTROPHILS # (AUTO) 9.94 x10^3/uL (1.8-6.8); NEUTROPHILS % (AUTO) 75 % (42-75); PLATELET COUNT 332 x10^3/uL (130-400); RED BLOOD COUNT 3.95 x10^6/uL (3.82-5.3); RED CELL DISTRIBUTION WIDTH 14.1 % (9.6-15.2)
[2019-02-11 05:10] LABS: CHLORIDE 106 mmol/L (98-107)
[2019-02-11 05:14] LABS: ANION GAP 3 mmol/L (5-15); CALCIUM 9.7 mg/dL (8.5-10.1); CREATININE 0.76 mg/dL (0.55-1.02)
[2019-02-11] MEDS: NYSTATIN 500,000 UNITS/5 ML UDC PO SCH ×4 (06:04→21:58)
[2019-02-11 06:46] VITALS: BP 153/75
[2019-02-11] MEDS: LISINOPRIL 20 MG TABLET NG SCH ×2 (09:00→21:58)
[2019-02-11] MEDS: FAMOTIDINE 20 MG TABLET PO SCH ×2 (09:00→21:58)
[2019-02-11] MEDS: SODIUM CHLORIDE 1 GM TABLET NG SCH ×3 (10:57→21:58)
[2019-02-11] MEDS: ENOXAPARIN 40 MG/0.4 ML SQ SCH (10:58)
[2019-02-11] MEDS: AMLODIPINE 5 MG TABLET PO SCH (11:00)
[2019-02-11] MEDS: CARVEDILOL 6.25 MG TABLET PO SCH ×3 (11:01→21:58)
[2019-02-11] MEDS: DOXAZOSIN 2MG TABLET PO SCH (11:02)
[2019-02-11 12:27] VITALS: BP 136/88
[2019-02-11 17:30] VITALS: BP 154/83
[2019-02-11 19:47] VITALS: BP 156/88
[2019-02-12 00:30] VITALS: BP 152/81
[2019-02-12 05:22] LABS: ANION GAP 2 mmol/L (5-15); CALCIUM 9.4 mg/dL (8.5-10.1); CHLORIDE 107 mmol/L (98-107)
[2019-02-12] MEDS: NYSTATIN 500,000 UNITS/5 ML UDC PO SCH ×4 (05:30→20:29)
[2019-02-12 09:18] VITALS: BP 169/85
[2019-02-12] MEDS: DOXAZOSIN 2MG TABLET PO SCH (11:02)
[2019-02-12] MEDS: AMLODIPINE 5 MG TABLET PO SCH (11:02)
[2019-02-12] MEDS: FAMOTIDINE 20 MG TABLET PO SCH ×2 (11:03→20:28)
[2019-02-12] MEDS: LISINOPRIL 20 MG TABLET NG SCH ×2 (11:03→20:29)
[2019-02-12] MEDS: ENOXAPARIN 40 MG/0.4 ML SQ SCH (11:21)
[2019-02-12] MEDS: CARVEDILOL 6.25 MG TABLET PO SCH ×3 (11:21→20:29)
[2019-02-12] MEDS: SODIUM CHLORIDE 1 GM TABLET NG SCH ×3 (11:27→20:28)
[2019-02-12 13:38] VITALS: BP 153/80
[2019-02-12 20:18] VITALS: BP 154/80
[2019-02-13 00:29] VITALS: BP 159/85
[2019-02-13] MEDS: NYSTATIN 500,000 UNITS/5 ML UDC PO SCH ×4 (06:00→20:49)
[2019-02-13 07:55] VITALS: BP 153/86
[2019-02-13] MEDS: LISINOPRIL 20 MG TABLET NG SCH ×2 (09:46→20:50)
[2019-02-13] MEDS: AMLODIPINE 5 MG TABLET PO SCH (09:46)
[2019-02-13] MEDS: SODIUM CHLORIDE 1 GM TABLET NG SCH ×3 (09:46→20:50)
[2019-02-13] MEDS: ENOXAPARIN 40 MG/0.4 ML SQ SCH (09:47)
[2019-02-13] MEDS: CARVEDILOL 6.25 MG TABLET PO SCH ×3 (09:47→20:53)
[2019-02-13] MEDS: DOXAZOSIN 2MG TABLET PO SCH (09:47)
[2019-02-13] MEDS: FAMOTIDINE 20 MG TABLET PO SCH ×2 (09:48→20:49)
[2019-02-13 14:30] VITALS: BP 137/85
[2019-02-13 16:35] VITALS: BP 149/78
[2019-02-13 20:18] VITALS: BP 151/84
[2019-02-14 01:18] VITALS: BP 155/79
[2019-02-14] MEDS: NYSTATIN 500,000 UNITS/5 ML UDC PO SCH ×4 (05:13→21:08)
[2019-02-14 06:03] LABS: BASOPHILS # (AUTO) 0.08 x10^3/uL (0-0.1); BASOPHILS % (AUTO) 1 % (0-1); EOSINOPHILS # (AUTO) 0.62 x10^3/uL (0-0.4); EOSINOPHILS % (AUTO) 6 % (1-7); LYMPHOCYTES # (AUTO) 2.02 x10^3/uL (1-3.4); LYMPHOCYTES % (AUTO) 19 % (22-44); MD NO; MEAN CORPUSCULAR HEMOGLOBIN 30.5 pg (27.0-34.8); MEAN CORPUSCULAR HGB CONC 32.5 g/dL (32.4-35.8); MEAN CORPUSCULAR VOLUME 93.8 fL (80-100); MEAN PLATELET VOLUME 8.8 fL (7.4-10.4); MONOCYTES % (AUTO) 7 % (2-9); NEUTROPHILS # (AUTO) 7.05 x10^3/uL (1.8-6.8); NEUTROPHILS % (AUTO) 67 % (42-75); PLATELET COUNT 352 x10^3/uL (130-400); RED BLOOD COUNT 4.23 x10^6/uL (3.82-5.3); RED CELL DISTRIBUTION WIDTH 13.3 % (9.6-15.2)
[2019-02-14 06:04] LABS: ANION GAP 4 mmol/L (5-15); CALCIUM 9.8 mg/dL (8.5-10.1); CHLORIDE 103 mmol/L (98-107); CREATININE 0.61 mg/dL (0.55-1.02)
[2019-02-14 07:10] VITALS: BP 142/86
[2019-02-14] MEDS: ENOXAPARIN 40 MG/0.4 ML SQ SCH (08:20)
[2019-02-14] MEDS: AMLODIPINE 5 MG TABLET PO SCH (09:42)
[2019-02-14] MEDS: DOXAZOSIN 2MG TABLET PO SCH (09:43)
[2019-02-14] MEDS: FAMOTIDINE 20 MG TABLET PO SCH ×2 (09:43→21:00)
[2019-02-14] MEDS: CARVEDILOL 6.25 MG TABLET PO SCH ×3 (09:43→21:00)
[2019-02-14] MEDS: SODIUM CHLORIDE 1 GM TABLET NG SCH ×3 (09:43→21:00)
[2019-02-14] MEDS: LISINOPRIL 20 MG TABLET NG SCH ×2 (09:43→21:00)
[2019-02-14 14:11] VITALS: BP 149/74
[2019-02-14 20:01] VITALS: BP 166/89
[2019-02-15 02:32] VITALS: BP 173/83
[2019-02-15 04:55] VITALS: BP 169/101
[2019-02-15] MEDS: ENALAPRILAT 1.25 MG/ML, 2ML IV PRN (05:00)
[2019-02-15 05:54] LABS: ANION GAP 4 mmol/L (5-15); CHLORIDE 103 mmol/L (98-107)
[2019-02-15 05:57] LABS: CREATININE 0.63 mg/dL (0.55-1.02)
[2019-02-15] MEDS: NYSTATIN 500,000 UNITS/5 ML UDC PO SCH ×4 (06:18→21:26)
[2019-02-15 07:14] VITALS: BP 152/79
[2019-02-15 11:56] VITALS: BP 159/82
[2019-02-15] MEDS: ENOXAPARIN 40 MG/0.4 ML SQ SCH (12:02)
[2019-02-15] MEDS: FAMOTIDINE 20 MG TABLET PO SCH ×2 (12:02→21:25)
[2019-02-15] MEDS: SODIUM CHLORIDE 1 GM TABLET NG SCH ×3 (12:02→21:26)
[2019-02-15] MEDS: CARVEDILOL 6.25 MG TABLET PO SCH ×3 (12:02→21:25)
[2019-02-15] MEDS: LISINOPRIL 20 MG TABLET NG SCH ×2 (12:03→21:26)
[2019-02-15] MEDS: AMLODIPINE 5 MG TABLET PO SCH (12:03)
[2019-02-15] MEDS: DOXAZOSIN 2MG TABLET PO SCH (12:03)
[2019-02-15 14:30] VITALS: BP 154/77
[2019-02-15 19:31] VITALS: BP 151/78
[2019-02-16] VITALS: BP 161/82
[2019-02-16 04:05] VITALS: BP 158/84
[2019-02-16] MEDS: NYSTATIN 500,000 UNITS/5 ML UDC PO SCH ×4 (06:54→21:00)
[2019-02-16 08:18] VITALS: BP 163/78
[2019-02-16] MEDS: ENOXAPARIN 40 MG/0.4 ML SQ SCH (08:30)
[2019-02-16] MEDS: SODIUM CHLORIDE 1 GM TABLET NG SCH ×3 (09:30→21:00)
[2019-02-16] MEDS: AMLODIPINE 5 MG TABLET PO SCH (09:31)
[2019-02-16] MEDS: CARVEDILOL 6.25 MG TABLET PO SCH ×3 (09:31→21:00)
[2019-02-16] MEDS: LISINOPRIL 20 MG TABLET NG SCH ×2 (09:31→21:00)
[2019-02-16] MEDS: FAMOTIDINE 20 MG TABLET PO SCH ×2 (09:32→21:00)
[2019-02-16] MEDS: DOXAZOSIN 2MG TABLET PO SCH (09:32)
[2019-02-16 13:03] VITALS: BP 151/81
[2019-02-16 14:17] LABS: BASOPHILS # (AUTO) 0.06 x10^3/uL (0-0.1); BASOPHILS % (AUTO) 1 % (0-1); EOSINOPHILS # (AUTO) 0.45 x10^3/uL (0-0.4); EOSINOPHILS % (AUTO) 5 % (1-7); LYMPHOCYTES # (AUTO) 1.89 x10^3/uL (1-3.4); LYMPHOCYTES % (AUTO) 20 % (22-44); MD NO; MEAN CORPUSCULAR HEMOGLOBIN 30.8 pg (27.0-34.8); MEAN CORPUSCULAR HGB CONC 32.8 g/dL (32.4-35.8); MEAN CORPUSCULAR VOLUME 93.8 fL (80-100); MONOCYTES # (AUTO) 0.71 x10^3/uL (0.2-0.8); MONOCYTES % (AUTO) 7 % (2-9); NEUTROPHILS # (AUTO) 6.48 x10^3/uL (1.8-6.8); NEUTROPHILS % (AUTO) 68 % (42-75); PLATELET COUNT 349 x10^3/uL (130-400); RED BLOOD COUNT 4.47 x10^6/uL (3.82-5.3); RED CELL DISTRIBUTION WIDTH 13.8 % (9.6-15.2)
[2019-02-16 16:41] VITALS: BP 74/47
[2019-02-16] MEDS ORDERED: SODIUM CHLORIDE 0.9% 1,000ML IVBOLUS ONE (17:30)
[2019-02-16] MEDS ORDERED: OMNIPAQUE 350 MG/ML, 100ML BOTTLE ONE (23:29)
[2019-02-17] MEDS: NYSTATIN 500,000 UNITS/5 ML UDC PO SCH ×2 (02:55→10:58)
[2019-02-17 04:00] VITALS: BP 110/64
[2019-02-17] MEDS ORDERED: SODIUM CHLORIDE 0.9% 1,000ML IVBOLUS ONE (08:00)
[2019-02-17] MEDS: SODIUM CHLORIDE 1 GM TABLET NG SCH ×3 (09:00→21:00)
[2019-02-17] MEDS: AMLODIPINE 5 MG TABLET PO SCH (09:00)
[2019-02-17] MEDS: DOXAZOSIN 2MG TABLET PO SCH (09:00)
[2019-02-17] MEDS: LISINOPRIL 20 MG TABLET NG SCH ×2 (09:00→21:00)
[2019-02-17] MEDS: CARVEDILOL 6.25 MG TABLET PO SCH ×3 (09:00→20:59)
[2019-02-17] MEDS: FAMOTIDINE 20 MG TABLET PO SCH ×2 (09:00→21:00)
[2019-02-17] MEDS: SODIUM CHLORIDE 0.9% 1,000 ML IV SCH ×2 (10:30→19:30)
[2019-02-17 15:16] LABS: HEMOGRAM NOTE RECHECKED
[2019-02-17 16:26] VITALS: BP 111/51
[2019-02-17 16:41] VITALS: BP 105/49
[2019-02-17] MEDS ORDERED: GOLYTELY 4,000ML ORAL.SOL PO ONE (17:00)
[2019-02-17 18:14] VITALS: BP 105/42
[2019-02-17 19:01] VITALS: BP 106/54
[2019-02-17] MEDS ORDERED: ONDANSETRON ODT 4 MG PO PRN (19:30)
[2019-02-18 02:55] LABS: BASOPHILS # (AUTO) 0.04 x10^3/uL (0-0.1); BASOPHILS % (AUTO) 0 % (0-1); EOSINOPHILS % (AUTO) 3 % (1-7); LYMPHOCYTES # (AUTO) 1.96 x10^3/uL (1-3.4); LYMPHOCYTES % (AUTO) 17 % (22-44); MD NO; MEAN CORPUSCULAR HEMOGLOBIN 30.5 pg (27.0-34.8); MEAN CORPUSCULAR HGB CONC 33.5 g/dL (32.4-35.8); MEAN CORPUSCULAR VOLUME 91.1 fL (80-100); MONOCYTES # (AUTO) 0.73 x10^3/uL (0.2-0.8); MONOCYTES % (AUTO) 6 % (2-9); NEUTROPHILS # (AUTO) 8.38 x10^3/uL (1.8-6.8); NEUTROPHILS % (AUTO) 73 % (42-75); PLATELET COUNT 267 x10^3/uL (130-400); RED BLOOD COUNT 2.73 x10^6/uL (3.82-5.3); RED CELL DISTRIBUTION WIDTH 15.6 % (9.6-15.2)
[2019-02-18 03:03] LABS: ANION GAP 4 mmol/L (5-15); CALCIUM 8.1 mg/dL (8.5-10.1); CHLORIDE 112 mmol/L (98-107); CREATININE 0.68 mg/dL (0.55-1.02)
[2019-02-18 04:03] VITALS: BP 124/64
[2019-02-18] MEDS: SODIUM CHLORIDE 0.9% 1,000 ML IV SCH (06:41)
[2019-02-18] MEDS: FAMOTIDINE 20 MG TABLET PO SCH ×2 (07:54→21:54)
[2019-02-18] MEDS: LISINOPRIL 20 MG TABLET NG SCH ×2 (07:54→21:54)
[2019-02-18] MEDS: AMLODIPINE 5 MG TABLET PO SCH (07:54)
[2019-02-18] MEDS: DOXAZOSIN 2MG TABLET PO SCH (07:54)
[2019-02-18] MEDS: SODIUM CHLORIDE 1 GM TABLET NG SCH ×3 (07:54→21:54)
[2019-02-18] MEDS: CARVEDILOL 6.25 MG TABLET PO SCH ×3 (07:55→21:54)
[2019-02-18] MEDS ORDERED: FENTANYL PF 100 MCG/2ML ONE (09:12)
[2019-02-18] MEDS ORDERED: PHENYLEPHRINE 10 MG/ML ONE (09:17)
[2019-02-18] MEDS ORDERED: CEFAZOLIN 1,000 MG ONE (09:42)
[2019-02-18] MEDS ORDERED: DEXAMETHASONE 4 MG/ML, 1ML ONE (09:42)
[2019-02-18] MEDS ORDERED: PROPOFOL 10 MG/ML, 20ML ONE (09:42)
[2019-02-18] MEDS ORDERED: ROCURONIUM 10MG/ML,5ML ONE (09:42)
[2019-02-18] MEDS ORDERED: GLYCOPYRROLATE 0.2MG/1ML, 5ML ONE (09:42)
[2019-02-18] MEDS ORDERED: NEOSTIGMINE 1 MG/ML, 10ML ONE (09:42)
[2019-02-18] MEDS ORDERED: ONDANSETRON 2MG/ML, 2ML ONE (09:42)
[2019-02-18] MEDS ORDERED: SUCCINYLCHOLINE 20 MG/ML, 10ML ONE (09:42)
[2019-02-18] MEDS ORDERED: SUGAMMADEX 200 MG/2 ML IVPush ONE (09:43)
[2019-02-18] MEDS ORDERED: EPHEDRINE 50 MG/ML, 1ML ONE (09:43)
[2019-02-18 21:44] VITALS: BP 104/65
[2019-02-18 23:09] LABS: ANION GAP 7 mmol/L (5-15); CALCIUM 8.5 mg/dL (8.5-10.1); CHLORIDE 112 mmol/L (98-107)
[2019-02-19 02:00] VITALS: BP 101/57
[2019-02-19 06:11] LABS: ANION GAP 5 mmol/L (5-15); CHLORIDE 110 mmol/L (98-107)
[2019-02-19 06:18] LABS: CALCIUM 8.8 mg/dL (8.5-10.1); CREATININE 0.69 mg/dL (0.55-1.02)
[2019-02-19 07:18] VITALS: BP 120/71
[2019-02-19] MEDS: LISINOPRIL 20 MG TABLET NG SCH ×2 (09:19→21:13)
[2019-02-19] MEDS: AMLODIPINE 5 MG TABLET PO SCH (09:19)
[2019-02-19] MEDS: SODIUM CHLORIDE 1 GM TABLET NG SCH ×3 (09:20→21:13)
[2019-02-19] MEDS: CARVEDILOL 6.25 MG TABLET PO SCH ×3 (09:20→21:13)
[2019-02-19] MEDS: DOXAZOSIN 2MG TABLET PO SCH (09:20)
[2019-02-19] MEDS: FAMOTIDINE 20 MG TABLET PO SCH ×2 (09:21→21:13)
[2019-02-19 11:49] LABS: ANION GAP 5 mmol/L (5-15); CALCIUM 8.5 mg/dL (8.5-10.1); CHLORIDE 109 mmol/L (98-107); CREATININE 0.72 mg/dL (0.55-1.02)
[2019-02-19 12:55] VITALS: BP 92/48
[2019-02-19 20:31] VITALS: BP 92/54
[2019-02-19 20:58] VITALS: BP 121/66
[2019-02-20 02:20] VITALS: BP 114/56
[2019-02-20 05:27] LABS: BASOPHILS # (AUTO) 0.01 x10^3/uL (0-0.1); BASOPHILS % (AUTO) 0 % (0-1); EOSINOPHILS # (AUTO) 0.18 x10^3/uL (0-0.4); EOSINOPHILS % (AUTO) 2 % (1-7); LYMPHOCYTES # (AUTO) 2.81 x10^3/uL (1-3.4); LYMPHOCYTES % (AUTO) 27 % (22-44); MD NO; MEAN CORPUSCULAR HEMOGLOBIN 30.2 pg (27.0-34.8); MEAN CORPUSCULAR HGB CONC 32.7 g/dL (32.4-35.8); MEAN CORPUSCULAR VOLUME 92.5 fL (80-100); MEAN PLATELET VOLUME 8.3 fL (7.4-10.4); MONOCYTES # (AUTO) 0.81 x10^3/uL (0.2-0.8); MONOCYTES % (AUTO) 8 % (2-9); NEUTROPHILS % (AUTO) 63 % (42-75); PLATELET COUNT 254 x10^3/uL (130-400); RED BLOOD COUNT 2.55 x10^6/uL (3.82-5.3); RED CELL DISTRIBUTION WIDTH 15.3 % (9.6-15.2)
[2019-02-20 08:15] VITALS: BP 125/70
[2019-02-20] MEDS: DOXAZOSIN 2MG TABLET PO SCH (08:30)
[2019-02-20] MEDS: SODIUM CHLORIDE 1 GM TABLET NG SCH ×3 (08:30→20:35)
[2019-02-20] MEDS: CARVEDILOL 6.25 MG TABLET PO SCH ×3 (08:30→20:35)
[2019-02-20] MEDS: FAMOTIDINE 20 MG TABLET PO SCH ×2 (08:31→20:35)
[2019-02-20] MEDS: LISINOPRIL 20 MG TABLET NG SCH ×2 (08:31→20:35)
[2019-02-20] MEDS: AMLODIPINE 5 MG TABLET PO SCH (08:32)
[2019-02-20] MEDS: DOCUSATE 50 MG/5 ML, 10ML UDC PO PRN ×2 (08:39→17:18)
[2019-02-20 14:14] VITALS: BP 107/63
[2019-02-20 18:55] VITALS: BP 112/66
[2019-02-20 20:35] VITALS: BP 128/74
[2019-02-21] VITALS (8 sets, daily range): BP systolic 99–131; BP diastolic 59–75
[2019-02-21 03:29] LABS: MEAN CORPUSCULAR HEMOGLOBIN 30.3 pg (27.0-34.8); MEAN CORPUSCULAR HGB CONC 32.8 g/dL (32.4-35.8); MEAN CORPUSCULAR VOLUME 92.4 fL (80-100); MEAN PLATELET VOLUME 7.9 fL (7.4-10.4); PLATELET COUNT 291 x10^3/uL (130-400); RED BLOOD COUNT 2.48 x10^6/uL (3.82-5.3); RED CELL DISTRIBUTION WIDTH 14.8 % (9.6-15.2)
[2019-02-21 03:35] LABS: ANION GAP 1 mmol/L (5-15); CALCIUM 8.4 mg/dL (8.5-10.1); CHLORIDE 108 mmol/L (98-107); CREATININE 0.57 mg/dL (0.55-1.02)
[2019-02-21 03:45] LABS: INTERNATIONAL NORMALIZED RATIO 1.01 (0.93-1.1); PROTHROMBIN TIME 10.6 Seconds (9.6-11.5)
[2019-02-21 04:12] LABS: BASOPHILS # (AUTO) 0.03 x10^3/uL (0-0.1); BASOPHILS % (AUTO) 0 % (0-1); EOSINOPHILS % (AUTO) 4 % (1-7); LYMPHOCYTES # (AUTO) 2.53 x10^3/uL (1-3.4); LYMPHOCYTES % (AUTO) 30 % (22-44); MD SCAN; MONOCYTES % (AUTO) 7 % (2-9); NEUTROPHILS # (AUTO) 5.12 x10^3/uL (1.8-6.8); NEUTROPHILS % (AUTO) 60 % (42-75)
[2019-02-21] MEDS: AMLODIPINE 5 MG TABLET PO SCH (09:20)
[2019-02-21] MEDS: CARVEDILOL 6.25 MG TABLET PO SCH ×3 (09:20→20:18)
[2019-02-21] MEDS: DOXAZOSIN 2MG TABLET PO SCH (09:21)
[2019-02-21] MEDS: LISINOPRIL 20 MG TABLET NG SCH ×2 (09:21→20:18)
[2019-02-21] MEDS: SODIUM CHLORIDE 1 GM TABLET NG SCH ×3 (09:21→20:18)
[2019-02-21] MEDS: FAMOTIDINE 20 MG TABLET PO SCH ×2 (09:21→20:19)
[2019-02-21] MEDS: ATORVASTATIN 80 MG TABLET PO SCH (20:19)
[2019-02-22] VITALS (7 sets, daily range): BP systolic 105–146; BP diastolic 52–86
[2019-02-22 03:21] LABS: ANION GAP 2 mmol/L (5-15); CALCIUM 8.8 mg/dL (8.5-10.1); CHLORIDE 108 mmol/L (98-107); CREATININE 0.56 mg/dL (0.55-1.02)
[2019-02-22 03:27] LABS: BASOPHILS # (AUTO) 0.06 x10^3/uL (0-0.1); BASOPHILS % (AUTO) 1 % (0-1); EOSINOPHILS # (AUTO) 0.43 x10^3/uL (0-0.4); EOSINOPHILS % (AUTO) 5 % (1-7); LYMPHOCYTES # (AUTO) 2.75 x10^3/uL (1-3.4); LYMPHOCYTES % (AUTO) 31 % (22-44); MD NO; MEAN CORPUSCULAR HEMOGLOBIN 30.9 pg (27.0-34.8); MEAN CORPUSCULAR HGB CONC 33.4 g/dL (32.4-35.8); MEAN CORPUSCULAR VOLUME 92.5 fL (80-100); MONOCYTES # (AUTO) 0.68 x10^3/uL (0.2-0.8); MONOCYTES % (AUTO) 8 % (2-9); NEUTROPHILS # (AUTO) 4.93 x10^3/uL (1.8-6.8); NEUTROPHILS % (AUTO) 56 % (42-75); PLATELET COUNT 299 x10^3/uL (130-400); RED BLOOD COUNT 2.96 x10^6/uL (3.82-5.3); RED CELL DISTRIBUTION WIDTH 14.8 % (9.6-15.2)
[2019-02-22] MEDS: CARVEDILOL 6.25 MG TABLET PO SCH ×3 (08:52→21:58)
[2019-02-22] MEDS: FAMOTIDINE 20 MG TABLET PO SCH ×2 (08:52→21:58)
[2019-02-22] MEDS: SODIUM CHLORIDE 1 GM TABLET NG SCH ×3 (08:52→21:58)
[2019-02-22] MEDS: DOXAZOSIN 2MG TABLET PO SCH (08:52)
[2019-02-22] MEDS: LISINOPRIL 20 MG TABLET NG SCH ×2 (08:52→22:01)
[2019-02-22] MEDS: AMLODIPINE 5 MG TABLET PO SCH (08:52)
[2019-02-22] MEDS: ATORVASTATIN 80 MG TABLET PO SCH (21:58)
[2019-02-23] VITALS (17 sets, daily range): BP systolic 65–133; BP diastolic 32–77
[2019-02-23 03:17] LABS: BASOPHILS # (AUTO) 0.03 x10^3/uL (0-0.1); BASOPHILS % (AUTO) 0 % (0-1); EOSINOPHILS # (AUTO) 0.47 x10^3/uL (0-0.4); EOSINOPHILS % (AUTO) 5 % (1-7); LYMPHOCYTES # (AUTO) 2.43 x10^3/uL (1-3.4); LYMPHOCYTES % (AUTO) 28 % (22-44); MD NO; MEAN CORPUSCULAR HGB CONC 32.7 g/dL (32.4-35.8); MEAN CORPUSCULAR VOLUME 91.7 fL (80-100); MEAN PLATELET VOLUME 7.4 fL (7.4-10.4); MONOCYTES # (AUTO) 0.65 x10^3/uL (0.2-0.8); MONOCYTES % (AUTO) 8 % (2-9); NEUTROPHILS # (AUTO) 5.18 x10^3/uL (1.8-6.8); NEUTROPHILS % (AUTO) 59 % (42-75); PLATELET COUNT 320 x10^3/uL (130-400); RED BLOOD COUNT 2.79 x10^6/uL (3.82-5.3); RED CELL DISTRIBUTION WIDTH 15.1 % (9.6-15.2)
[2019-02-23 03:28] LABS: ANION GAP 3 mmol/L (5-15); CALCIUM 8.9 mg/dL (8.5-10.1); CHLORIDE 108 mmol/L (98-107)
[2019-02-23] MEDS: SODIUM CHLORIDE 1 GM TABLET NG SCH ×3 (09:08→21:00)
[2019-02-23] MEDS: FAMOTIDINE 20 MG TABLET PO SCH ×2 (09:09→21:00)
[2019-02-23] MEDS: LISINOPRIL 20 MG TABLET NG SCH (09:09)
[2019-02-23] MEDS: DOXAZOSIN 2MG TABLET PO SCH (09:09)
[2019-02-23] MEDS: CARVEDILOL 6.25 MG TABLET PO SCH ×3 (09:09→21:00)
[2019-02-23] MEDS: AMLODIPINE 5 MG TABLET PO SCH (09:11)
[2019-02-23] MEDS ORDERED: FENTANYL PF 100 MCG/2ML ONE ×2 (16:26)
[2019-02-23] MEDS ORDERED: MIDAZOLAM 1 MG/ML, 5ML ONE (16:26)
[2019-02-23] MEDS ORDERED: FLUMAZENIL 0.1 MG/1 ML, 5ML ONE (16:27)
[2019-02-23] MEDS ORDERED: NALOXONE 1 MG/ML, 2ML ONE (16:27)
[2019-02-23] MEDS ORDERED: LIDOCAINE 1%, 10ML ONE (16:34)
[2019-02-23] MEDS ORDERED: VISIPAQUE 270 MG/ML, 50ML BOTTLE ONE (17:56)
[2019-02-23] MEDS ORDERED: VISIPAQUE 320 MG/ML, 150ML BOTTLE ONE (17:56)
[2019-02-23] MEDS: ATORVASTATIN 80 MG TABLET PO SCH (21:00)
[2019-02-23] MEDS ORDERED: LISINOPRIL 20 MG TABLET NG SCH (21:00)
[2019-02-23] MEDS ORDERED: SODIUM CHLORIDE 0.9%, 500ML IVBOLUS ONE (21:30)
[2019-02-23] MEDS ORDERED: SODIUM CHLORIDE 0.9% 1,000 ML IV SCH ×2 (22:05→22:07)
[2019-02-23] MEDS ORDERED: LIDOCAINE-MPF 1%, 2ML ONE (22:25)
[2019-02-24] VITALS (15 sets, daily range): BP systolic 102–138; BP diastolic 52–64
[2019-02-24 00:19] LABS: ALANINE AMINOTRANSFERASE 16 U/L (12-78); ALBUMIN 2.1 g/dL (3.4-5.0); ANION GAP 4 mmol/L (5-15); CALCIUM 8.1 mg/dL (8.5-10.1); CHLORIDE 112 mmol/L (98-107); CREATININE 0.59 mg/dL (0.55-1.02)
[2019-02-24 00:21] LABS: ALKALINE PHOSPHATASE 56 U/L (45-117); BILIRUBIN,TOTAL 0.8 mg/dL (0.2-1.0); TOTAL PROTEIN 5.1 g/dL (6.4-8.2)
[2019-02-24 00:23] LABS: BASOPHILS # (AUTO) 0.03 x10^3/uL (0-0.1); BASOPHILS % (AUTO) 0 % (0-1); EOSINOPHILS # (AUTO) 0.34 x10^3/uL (0-0.4); EOSINOPHILS % (AUTO) 4 % (1-7); LYMPHOCYTES # (AUTO) 1.69 x10^3/uL (1-3.4); LYMPHOCYTES % (AUTO) 18 % (22-44); MD NO; MEAN CORPUSCULAR HEMOGLOBIN 30.8 pg (27.0-34.8); MEAN CORPUSCULAR HGB CONC 33.5 g/dL (32.4-35.8); MEAN CORPUSCULAR VOLUME 91.7 fL (80-100); MEAN PLATELET VOLUME 7.8 fL (7.4-10.4); MONOCYTES # (AUTO) 0.59 x10^3/uL (0.2-0.8); MONOCYTES % (AUTO) 6 % (2-9); NEUTROPHILS # (AUTO) 6.55 x10^3/uL (1.8-6.8); NEUTROPHILS % (AUTO) 71 % (42-75); PLATELET COUNT 250 x10^3/uL (130-400); RED BLOOD COUNT 2.73 x10^6/uL (3.82-5.3); RED CELL DISTRIBUTION WIDTH 14.9 % (9.6-15.2)
[2019-02-24 00:36] LABS: D-DIMER (DIC) 2.04 ug/mlFEU (0.00-0.52); PROTIME 11.4 Seconds (9.6-11.5)
[2019-02-24] MEDS ORDERED: GOLYTELY 4,000ML ORAL.SOL PO ONE (03:00)
[2019-02-24 06:08] LABS: ANION GAP 4 mmol/L (5-15); CALCIUM 8.5 mg/dL (8.5-10.1); CHLORIDE 112 mmol/L (98-107)
[2019-02-24 06:10] LABS: BASOPHILS # (AUTO) 0.01 x10^3/uL (0-0.1); BASOPHILS % (AUTO) 0 % (0-1); EOSINOPHILS # (AUTO) 0.21 x10^3/uL (0-0.4); EOSINOPHILS % (AUTO) 2 % (1-7); LYMPHOCYTES # (AUTO) 1.97 x10^3/uL (1-3.4); LYMPHOCYTES % (AUTO) 23 % (22-44); MD NO; MEAN CORPUSCULAR HEMOGLOBIN 29.1 pg (27.0-34.8); MEAN CORPUSCULAR HGB CONC 33.2 g/dL (32.4-35.8); MEAN CORPUSCULAR VOLUME 87.4 fL (80-100); MEAN PLATELET VOLUME 7.7 fL (7.4-10.4); MONOCYTES # (AUTO) 0.53 x10^3/uL (0.2-0.8); MONOCYTES % (AUTO) 6 % (2-9); NEUTROPHILS # (AUTO) 5.97 x10^3/uL (1.8-6.8); NEUTROPHILS % (AUTO) 69 % (42-75); PLATELET COUNT 218 x10^3/uL (130-400); RED BLOOD COUNT 3.93 x10^6/uL (3.82-5.3); RED CELL DISTRIBUTION WIDTH 14.7 % (9.6-15.2)
[2019-02-24] MEDS ORDERED: AMLODIPINE 10 MG TAB PO SCH (09:00)
[2019-02-24] MEDS: FAMOTIDINE 20 MG TABLET PO SCH ×2 (09:41→20:19)
[2019-02-24] MEDS ORDERED: PROPOFOL 10 MG/ML, 20ML ONE (14:10)
[2019-02-24] MEDS: ATORVASTATIN 80 MG TABLET PO SCH (20:18)
[2019-02-25 06:34] LABS: BASOPHILS # (AUTO) 0.05 x10^3/uL (0-0.1); BASOPHILS % (AUTO) 1 % (0-1); EOSINOPHILS # (AUTO) 0.55 x10^3/uL (0-0.4); EOSINOPHILS % (AUTO) 7 % (1-7); LYMPHOCYTES # (AUTO) 2.07 x10^3/uL (1-3.4); LYMPHOCYTES % (AUTO) 26 % (22-44); MD NO; MEAN CORPUSCULAR HEMOGLOBIN 29.7 pg (27.0-34.8); MEAN CORPUSCULAR VOLUME 89.9 fL (80-100); MEAN PLATELET VOLUME 7.7 fL (7.4-10.4); MONOCYTES # (AUTO) 0.67 x10^3/uL (0.2-0.8); MONOCYTES % (AUTO) 9 % (2-9); NEUTROPHILS # (AUTO) 4.52 x10^3/uL (1.8-6.8); NEUTROPHILS % (AUTO) 58 % (42-75); PLATELET COUNT 239 x10^3/uL (130-400); RED BLOOD COUNT 3.74 x10^6/uL (3.82-5.3); RED CELL DISTRIBUTION WIDTH 15.2 % (9.6-15.2)
[2019-02-25 07:03] LABS: ANION GAP 4 mmol/L (5-15); CALCIUM 8.8 mg/dL (8.5-10.1); CHLORIDE 107 mmol/L (98-107)
[2019-02-25 07:04] LABS: CREATININE 0.52 mg/dL (0.55-1.02)
[2019-02-25 08:15] VITALS: BP 128/66
[2019-02-25] MEDS: FAMOTIDINE 20 MG TABLET PO SCH ×2 (09:10→21:13)
[2019-02-25 20:43] VITALS: BP 126/73
[2019-02-25] MEDS: ATORVASTATIN 80 MG TABLET PO SCH (21:13)
[2019-02-26 01:40] VITALS: BP 119/67
[2019-02-26 07:05] VITALS: BP 124/77
[2019-02-26] MEDS: FAMOTIDINE 20 MG TABLET PO SCH ×2 (10:03→20:40)
[2019-02-26 12:03] VITALS: BP 130/78
[2019-02-26 19:58] VITALS: BP 128/75
[2019-02-26] MEDS: ATORVASTATIN 80 MG TABLET PO SCH (20:40)
[2019-02-27 01:03] VITALS: BP 130/71
[2019-02-27 06:31] LABS: BASOPHILS # (AUTO) 0.05 x10^3/uL (0-0.1); BASOPHILS % (AUTO) 1 % (0-1); EOSINOPHILS # (AUTO) 0.35 x10^3/uL (0-0.4); EOSINOPHILS % (AUTO) 6 % (1-7); LYMPHOCYTES # (AUTO) 1.68 x10^3/uL (1-3.4); LYMPHOCYTES % (AUTO) 29 % (22-44); MD NO; MEAN CORPUSCULAR HEMOGLOBIN 29.6 pg (27.0-34.8); MEAN CORPUSCULAR HGB CONC 32.5 g/dL (32.4-35.8); MEAN CORPUSCULAR VOLUME 91.1 fL (80-100); MEAN PLATELET VOLUME 7.6 fL (7.4-10.4); MONOCYTES # (AUTO) 0.62 x10^3/uL (0.2-0.8); MONOCYTES % (AUTO) 11 % (2-9); NEUTROPHILS # (AUTO) 3.04 x10^3/uL (1.8-6.8); NEUTROPHILS % (AUTO) 53 % (42-75); PLATELET COUNT 251 x10^3/uL (130-400); RED CELL DISTRIBUTION WIDTH 15.6 % (9.6-15.2)
[2019-02-27 07:24] VITALS: BP 144/75
[2019-02-27] MEDS: FAMOTIDINE 20 MG TABLET PO SCH ×2 (09:00→20:18)
[2019-02-27 14:22] VITALS: BP 138/79
[2019-02-27] MEDS: AMLODIPINE 5 MG TABLET PO SCH (14:45)
[2019-02-27 19:41] VITALS: BP 114/68
[2019-02-27] MEDS: ATORVASTATIN 80 MG TABLET PO SCH (20:18)
[2019-02-27] MEDS: ACETAMINOPHEN 650 MG/20.3 ML UDC PO/NG PRN (21:33)
[2019-02-28 01:35] VITALS: BP 131/83
[2019-02-28 06:27] LABS: BASOPHILS # (AUTO) 0.07 x10^3/uL (0-0.1); BASOPHILS % (AUTO) 1 % (0-1); EOSINOPHILS # (AUTO) 0.34 x10^3/uL (0-0.4); EOSINOPHILS % (AUTO) 6 % (1-7); LYMPHOCYTES # (AUTO) 1.91 x10^3/uL (1-3.4); LYMPHOCYTES % (AUTO) 33 % (22-44); MD NO; MEAN CORPUSCULAR HEMOGLOBIN 29.8 pg (27.0-34.8); MEAN CORPUSCULAR HGB CONC 32.6 g/dL (32.4-35.8); MEAN CORPUSCULAR VOLUME 91.4 fL (80-100); MEAN PLATELET VOLUME 7.7 fL (7.4-10.4); MONOCYTES # (AUTO) 0.63 x10^3/uL (0.2-0.8); MONOCYTES % (AUTO) 11 % (2-9); NEUTROPHILS # (AUTO) 2.82 x10^3/uL (1.8-6.8); NEUTROPHILS % (AUTO) 49 % (42-75); PLATELET COUNT 269 x10^3/uL (130-400); RED BLOOD COUNT 3.96 x10^6/uL (3.82-5.3); RED CELL DISTRIBUTION WIDTH 15.8 % (9.6-15.2)
[2019-02-28 06:34] LABS: ALBUMIN 2.8 g/dL (3.4-5.0); ANION GAP 3 mmol/L (5-15); CALCIUM 9.9 mg/dL (8.5-10.1); CHLORIDE 108 mmol/L (98-107)
[2019-02-28 06:38] LABS: ALANINE AMINOTRANSFERASE 27 U/L (12-78); ALKALINE PHOSPHATASE 79 U/L (45-117); CREATININE 0.72 mg/dL (0.55-1.02); TOTAL PROTEIN 6.6 g/dL (6.4-8.2)
[2019-02-28 08:06] VITALS: BP 145/79
[2019-02-28] MEDS: FAMOTIDINE 20 MG TABLET PO SCH ×2 (08:43→20:02)
[2019-02-28] MEDS: AMLODIPINE 5 MG TABLET PO SCH (08:43)
[2019-02-28 14:59] VITALS: BP 155/88
[2019-02-28] MEDS ORDERED: hydrALAzine 20 MG/ML, 1ML IV PRN (15:30)
[2019-02-28 19:40] VITALS: BP 104/65
[2019-02-28] MEDS: ATORVASTATIN 80 MG TABLET PO SCH (20:02)
[2019-03-01 00:29] VITALS: BP 118/71
[2019-03-01 06:20] LABS: BASOPHILS # (AUTO) 0.05 x10^3/uL (0-0.1); BASOPHILS % (AUTO) 1 % (0-1); EOSINOPHILS # (AUTO) 0.32 x10^3/uL (0-0.4); EOSINOPHILS % (AUTO) 4 % (1-7); LYMPHOCYTES # (AUTO) 2.29 x10^3/uL (1-3.4); LYMPHOCYTES % (AUTO) 30 % (22-44); MD NO; MEAN CORPUSCULAR HEMOGLOBIN 29.6 pg (27.0-34.8); MEAN CORPUSCULAR HGB CONC 32.3 g/dL (32.4-35.8); MEAN CORPUSCULAR VOLUME 91.6 fL (80-100); MEAN PLATELET VOLUME 7.4 fL (7.4-10.4); MONOCYTES # (AUTO) 0.72 x10^3/uL (0.2-0.8); MONOCYTES % (AUTO) 9 % (2-9); NEUTROPHILS # (AUTO) 4.34 x10^3/uL (1.8-6.8); NEUTROPHILS % (AUTO) 56 % (42-75); PLATELET COUNT 278 x10^3/uL (130-400); RED BLOOD COUNT 4.06 x10^6/uL (3.82-5.3); RED CELL DISTRIBUTION WIDTH 16.1 % (9.6-15.2)
[2019-03-01 06:32] LABS: ANION GAP 7 mmol/L (5-15); CALCIUM 9.7 mg/dL (8.5-10.1); CHLORIDE 106 mmol/L (98-107); CREATININE 0.76 mg/dL (0.55-1.02)
[2019-03-01 07:48] VITALS: BP 127/72
[2019-03-01] MEDS: FAMOTIDINE 20 MG TABLET PO SCH ×2 (09:16→21:12)
[2019-03-01] MEDS: AMLODIPINE 10 MG TAB PO SCH (09:16)
[2019-03-01 10:18] LABS: % IRON SATURATION 14 % (20-55); IRON LEVEL 32 mcg/dL (50-170); TOTAL IRON BINDING CAPACITY 222 mcg/dL (250-450)
[2019-03-01 13:00] VITALS: BP 121/75
[2019-03-01 18:53] VITALS: BP 126/74
[2019-03-01] MEDS: ATORVASTATIN 80 MG TABLET PO SCH (21:12)
[2019-03-02 01:18] VITALS: BP 127/77
[2019-03-02 05:05] LABS: BASOPHILS # (AUTO) 0.05 x10^3/uL (0-0.1); BASOPHILS % (AUTO) 1 % (0-1); EOSINOPHILS # (AUTO) 0.33 x10^3/uL (0-0.4); EOSINOPHILS % (AUTO) 4 % (1-7); LYMPHOCYTES % (AUTO) 30 % (22-44); MD NO; MEAN CORPUSCULAR HEMOGLOBIN 29.7 pg (27.0-34.8); MEAN CORPUSCULAR HGB CONC 32.4 g/dL (32.4-35.8); MEAN CORPUSCULAR VOLUME 91.5 fL (80-100); MEAN PLATELET VOLUME 7.6 fL (7.4-10.4); MONOCYTES # (AUTO) 0.74 x10^3/uL (0.2-0.8); MONOCYTES % (AUTO) 10 % (2-9); NEUTROPHILS # (AUTO) 4.17 x10^3/uL (1.8-6.8); NEUTROPHILS % (AUTO) 55 % (42-75); PLATELET COUNT 286 x10^3/uL (130-400); RED BLOOD COUNT 4.08 x10^6/uL (3.82-5.3); RED CELL DISTRIBUTION WIDTH 15.7 % (9.6-15.2)
[2019-03-02 05:19] LABS: CHLORIDE 107 mmol/L (98-107)
[2019-03-02 05:30] LABS: ANION GAP 6 mmol/L (5-15); CALCIUM 9.9 mg/dL (8.5-10.1); CREATININE 0.73 mg/dL (0.55-1.02)
[2019-03-02 08:17] VITALS: BP 131/79
[2019-03-02] MEDS: FAMOTIDINE 20 MG TABLET PO SCH ×2 (10:04→22:39)
[2019-03-02] MEDS: AMLODIPINE 10 MG TAB PO SCH (10:04)
[2019-03-02 13:56] VITALS: BP 91/56
[2019-03-02] MEDS ORDERED: SODIUM CHLORIDE 0.9%, 500ML IVBOLUS ONE (14:30)
[2019-03-02 15:41] VITALS: BP 113/71
[2019-03-02 18:46] VITALS: BP 101/61
[2019-03-02] MEDS: ATORVASTATIN 80 MG TABLET PO SCH (22:39)
[2019-03-03 00:32] VITALS: BP 134/77
[2019-03-03 06:14] LABS: BASOPHILS # (AUTO) 0.05 x10^3/uL (0-0.1); BASOPHILS % (AUTO) 1 % (0-1); EOSINOPHILS # (AUTO) 0.28 x10^3/uL (0-0.4); EOSINOPHILS % (AUTO) 4 % (1-7); LYMPHOCYTES # (AUTO) 2.07 x10^3/uL (1-3.4); LYMPHOCYTES % (AUTO) 29 % (22-44); MD NO; MEAN CORPUSCULAR HEMOGLOBIN 29.7 pg (27.0-34.8); MEAN CORPUSCULAR HGB CONC 32.6 g/dL (32.4-35.8); MEAN CORPUSCULAR VOLUME 91.1 fL (80-100); MEAN PLATELET VOLUME 7.8 fL (7.4-10.4); MONOCYTES # (AUTO) 0.63 x10^3/uL (0.2-0.8); MONOCYTES % (AUTO) 9 % (2-9); NEUTROPHILS # (AUTO) 4.18 x10^3/uL (1.8-6.8); NEUTROPHILS % (AUTO) 58 % (42-75); PLATELET COUNT 269 x10^3/uL (130-400); RED BLOOD COUNT 3.94 x10^6/uL (3.82-5.3); RED CELL DISTRIBUTION WIDTH 15.5 % (9.6-15.2)
[2019-03-03 06:21] LABS: ANION GAP 6 mmol/L (5-15); CALCIUM 9.7 mg/dL (8.5-10.1); CHLORIDE 108 mmol/L (98-107); CREATININE 0.64 mg/dL (0.55-1.02)
[2019-03-03 08:16] VITALS: BP 115/75
[2019-03-03] MEDS: AMLODIPINE 10 MG TAB PO SCH (08:24)
[2019-03-03] MEDS: FAMOTIDINE 20 MG TABLET PO SCH ×2 (08:24→20:17)
[2019-03-03 13:35] VITALS: BP 100/64
[2019-03-03 19:28] VITALS: BP 113/67
[2019-03-03] MEDS: ATORVASTATIN 80 MG TABLET PO SCH (20:17)
[2019-03-04 00:44] VITALS: BP 117/76
[2019-03-04 06:31] VITALS: BP 113/69
[2019-03-04 09:26] LABS: BASOPHILS # (AUTO) 0.06 x10^3/uL (0-0.1); BASOPHILS % (AUTO) 1 % (0-1); EOSINOPHILS # (AUTO) 0.18 x10^3/uL (0-0.4); EOSINOPHILS % (AUTO) 3 % (1-7); LYMPHOCYTES # (AUTO) 1.97 x10^3/uL (1-3.4); LYMPHOCYTES % (AUTO) 28 % (22-44); MD NO; MEAN CORPUSCULAR HEMOGLOBIN 29.2 pg (27.0-34.8); MEAN CORPUSCULAR HGB CONC 32.5 g/dL (32.4-35.8); MEAN CORPUSCULAR VOLUME 89.7 fL (80-100); MEAN PLATELET VOLUME 7.4 fL (7.4-10.4); MONOCYTES # (AUTO) 0.63 x10^3/uL (0.2-0.8); MONOCYTES % (AUTO) 9 % (2-9); NEUTROPHILS # (AUTO) 4.23 x10^3/uL (1.8-6.8); NEUTROPHILS % (AUTO) 60 % (42-75); PLATELET COUNT 269 x10^3/uL (130-400); RED CELL DISTRIBUTION WIDTH 15.5 % (9.6-15.2)
[2019-03-04 09:36] LABS: ANION GAP 7 mmol/L (5-15); CALCIUM 9.5 mg/dL (8.5-10.1); CHLORIDE 107 mmol/L (98-107); CREATININE 0.69 mg/dL (0.55-1.02)
[2019-03-04] MEDS: FAMOTIDINE 20 MG TABLET PO SCH ×2 (09:50→20:17)
[2019-03-04] MEDS: AMLODIPINE 10 MG TAB PO SCH (09:50)
[2019-03-04 13:13] VITALS: BP 113/64
[2019-03-04 20:02] VITALS: BP 127/70
[2019-03-04] MEDS: ATORVASTATIN 80 MG TABLET PO SCH (20:16)
[2019-03-05 00:11] VITALS: BP 123/70
[2019-03-05 07:44] VITALS: BP 150/76
[2019-03-05] MEDS: AMLODIPINE 10 MG TAB PO SCH (09:16)
[2019-03-05] MEDS: DOCUSATE 50 MG/5 ML, 10ML UDC PO PRN (09:16)
[2019-03-05] MEDS: FAMOTIDINE 20 MG TABLET PO SCH ×2 (09:16→21:44)
[2019-03-05 11:33] VITALS: BP 113/68
[2019-03-05 12:02] VITALS: BP 102/61
[2019-03-05 13:24] LABS: BASOPHILS # (AUTO) 0.06 x10^3/uL (0-0.1); BASOPHILS % (AUTO) 1 % (0-1); EOSINOPHILS # (AUTO) 0.16 x10^3/uL (0-0.4); EOSINOPHILS % (AUTO) 2 % (1-7); LYMPHOCYTES # (AUTO) 2.45 x10^3/uL (1-3.4); LYMPHOCYTES % (AUTO) 33 % (22-44); MD NO; MEAN CORPUSCULAR HEMOGLOBIN 29.1 pg (27.0-34.8); MEAN CORPUSCULAR HGB CONC 31.8 g/dL (32.4-35.8); MEAN CORPUSCULAR VOLUME 91.7 fL (80-100); MEAN PLATELET VOLUME 7.5 fL (7.4-10.4); MONOCYTES # (AUTO) 0.79 x10^3/uL (0.2-0.8); MONOCYTES % (AUTO) 11 % (2-9); NEUTROPHILS # (AUTO) 3.91 x10^3/uL (1.8-6.8); NEUTROPHILS % (AUTO) 53 % (42-75); PLATELET COUNT 295 x10^3/uL (130-400); RED BLOOD COUNT 3.99 x10^6/uL (3.82-5.3); RED CELL DISTRIBUTION WIDTH 15.5 % (9.6-15.2)
[2019-03-05 13:38] LABS: ANION GAP 7 mmol/L (5-15); CALCIUM 9.4 mg/dL (8.5-10.1); CHLORIDE 105 mmol/L (98-107); CREATININE 0.64 mg/dL (0.55-1.02)
[2019-03-05 20:45] VITALS: BP 123/77
[2019-03-05] MEDS: ATORVASTATIN 80 MG TABLET PO SCH (21:45)
[2019-03-06 00:46] VITALS: BP 124/77
[2019-03-06 07:06] VITALS: BP 116/74
[2019-03-06] MEDS: FAMOTIDINE 20 MG TABLET PO SCH ×2 (09:52→20:44)
[2019-03-06] MEDS: AMLODIPINE 10 MG TAB PO SCH (09:52)
[2019-03-06] MEDS: DOCUSATE 50 MG/5 ML, 10ML UDC PO PRN ×2 (09:54→20:44)
[2019-03-06 12:43] VITALS: BP 107/68
[2019-03-06] MEDS: ATORVASTATIN 80 MG TABLET PO SCH (20:44)
[2019-03-06 21:36] VITALS: BP 115/68
[2019-03-07 01:44] VITALS: BP 117/72
[2019-03-07 08:00] VITALS: BP 119/73
[2019-03-07] MEDS: AMLODIPINE 10 MG TAB PO SCH (09:46)
[2019-03-07] MEDS: FAMOTIDINE 20 MG TABLET PO SCH ×2 (09:46→21:06)
[2019-03-07] MEDS: LACTULOSE 20 GM/30 ML UDC PO PRN (09:49)
[2019-03-07 12:28] VITALS: BP 113/66
[2019-03-07 19:14] VITALS: BP 118/61
[2019-03-07] MEDS: ATORVASTATIN 80 MG TABLET PO SCH (21:06)
[2019-03-08 00:39] VITALS: BP 116/72
[2019-03-08 06:36] VITALS: BP 108/63
[2019-03-08] MEDS: FAMOTIDINE 20 MG TABLET PO SCH ×2 (09:36→21:01)
[2019-03-08] MEDS: AMLODIPINE 10 MG TAB PO SCH (09:36)
[2019-03-08 12:37] VITALS: BP 120/73
[2019-03-08 20:30] VITALS: BP 111/64
[2019-03-08] MEDS: ATORVASTATIN 80 MG TABLET PO SCH (21:01)
[2019-03-09 00:38] VITALS: BP 111/65
[2019-03-09 07:43] VITALS: BP 109/69
[2019-03-09 08:15] VITALS: BP 118/70
[2019-03-09] MEDS: AMLODIPINE 10 MG TAB PO SCH (08:16)
[2019-03-09] MEDS: FAMOTIDINE 20 MG TABLET PO SCH (08:16)
[2019-03-09 12:46] VITALS: BP 96/59
== END 2019-03-09 18:35 | disposition home health service (06) | DRG 23 ==
LOC: EDBD 10:32 → MERGE 10:32 → ED 11:56 → SUATTDRO 12:10 → EDIP 12:14 → CCU 13:05 → 4EST 02-10 17:25 → CCU 02-16 17:01 → 4EST 02-18 18:18 → CCU 02-23 22:07 → 4WST 02-25 22:23
PROVIDERS: ADMIT Internal Medicine; ATTEND Family Medicine
PROC: 5A1945Z Respiratory Ventilation, 24-96 Consecutive Hours (ICD-10-PCS; 2019-01-26)
PROC: 0BH17EZ Insertion of Endotracheal Airway into Trachea, Via Natural or Artificial Opening (ICD-10-PCS; 2019-01-26)
PROC: 02HV33Z Insertion of Infusion Device into Superior Vena Cava, Percutaneous Approach (ICD-10-PCS; 2019-01-26)
PROC: B548ZZA Ultrasonography of Superior Vena Cava, Guidance (ICD-10-PCS; 2019-01-26)
PROC: 009600Z Drainage of Cerebral Ventricle with Drainage Device, Open Approach (ICD-10-PCS; principal; 2019-01-26 12:15)
PROC: 30233N1 Transfusion of Nonautologous Red Blood Cells into Peripheral Vein, Percutaneous Approach (ICD-10-PCS; 2019-02-17)
PROC: 0DJD8ZZ Inspection of Lower Intestinal Tract, Via Natural or Artificial Opening Endoscopic (ICD-10-PCS; 2019-02-18)
PROC: 0DH63UZ Insertion of Feeding Device into Stomach, Percutaneous Approach (ICD-10-PCS; 2019-02-18)
PROC: B4141ZZ Fluoroscopy of Superior Mesenteric Artery using Low Osmolar Contrast (ICD-10-PCS; 2019-02-23)
PROC: B41J1ZZ Fluoroscopy of Other Lower Arteries using Low Osmolar Contrast (ICD-10-PCS; 2019-02-23)
PROC: 0DJD8ZZ Inspection of Lower Intestinal Tract, Via Natural or Artificial Opening Endoscopic (ICD-10-PCS; 2019-02-24)
DX: I61.5 Nontraumatic intracerebral hemorrhage, intraventricular (principal); J96.00 Acute respiratory failure, unspecified whether with hypoxia or hypercapnia; G93.6 Cerebral edema; G93.41 Metabolic encephalopathy; J69.0 Pneumonitis due to inhalation of food and vomit; J15.4 Pneumonia due to other streptococci; R57.1 Hypovolemic shock; D62 Acute posthemorrhagic anemia; E87.1 Hypo-osmolality and hyponatremia; E87.4 Mixed disorder of acid-base balance; G81.94 Hemiplegia, unspecified affecting left nondominant side; I16.9 Hypertensive crisis, unspecified; G91.9 Hydrocephalus, unspecified; Z99.11 Dependence on respirator [ventilator] status; B37.9 Candidiasis, unspecified; I08.1 Rheumatic disorders of both mitral and tricuspid valves; I10 Essential (primary) hypertension; I25.10 Atherosclerotic heart disease of native coronary artery without angina pectoris; I48.91 Unspecified atrial fibrillation; K64.0 First degree hemorrhoids; R13.10 Dysphagia, unspecified; Z51.5 Encounter for palliative care; K57.30 Diverticulosis of large intestine without perforation or abscess without bleeding; H55.00 Unspecified nystagmus; W18.30XA Fall on same level, unspecified, initial encounter; Y93.89 Activity, other specified; Y92.89 Other specified places as the place of occurrence of the external cause; Y99.8 Other external cause status; Z86.73 Personal history of transient ischemic attack (TIA), and cerebral infarction without residual deficits; Z90.49 Acquired absence of other specified parts of digestive tract; Z98.2 Presence of cerebrospinal fluid drainage device
CPT/HCPCS: 31500; 36415; 36600; 74018; 74230; 96374; 96375; 99291; J3490; J7620; 36246; 70450; 70496; 70498; 70553; 71045; 74174; 74176; 75726; 78278; 80047; 80048; 80053; 82607; 82728; 82803; 82962; 83540; 83550; 83605; 83735; 84100; 84443; 85014; 85018; 85025; 85049; 85379; 85384; 85610; 85730; 86850; 86900; 86923; 87070; 87081; 87147; 87205; 93005; 93306; 94002; 94003; 94150; 94640; 99156; 99157; B4087; G0378; J0690; J0696; J1100; J1650; J1953; J2250; J2405; J2704; J2710; J3010; J3480; J7060; P9047; Q9966; Q9967; 92523-GN; A9560; C1751; C1760; C1769; C9113; G0269; J0330; J0360; J2310; J2370; J7030; J7040; J7050; P9016